=== PATIENT | female | born 1950 | race Caucasian/White ===

== ENCOUNTER 2017-04-24 10:00 | Outpatient (RCR) | payer MEDICARE, OTHER, SELFPAY ==
--- NOTE | 2017-03-23 13:16 | HP.OTEVAL_ITS ---
Patient's Visit Information OMAR MONTALVO is a 66 year old F, referred to Occupational Therapy by Gopal Gutiérrez DO,, with a diagnosis of Left hand pain. Date of Evaluation: 03/23/17 Occupational Therapist: RAN Mclaughlin/Chantelle, CHT - Subjective Subjective: Pt had a fall on October 07 and suffered a left hand fx. -pt states she is having difficulty closing her hand around objects, and pushing off of her chair- pt states she noticed she could not close her hand and pain increases when she works with her knitting- pt is hopeful she can gain the ability to close her hand and return to knitting- - Pain left hand 3 Pain Intensity Range: 0, 5 - ROM Wrist: right 60/70 left 60/40 MP: Right LF 0/80 left 0/15 PIP: Right LF 0/105 left -5/65 DIP: Right LF 0/65 left -5/50 ROM Comments: pt - Strength [employer]: right 35# left 10# Lateral Pinch: right 8# left 6# Tripod Pinch: Right 6# left 4# - Edema PIP: right 5.0 left 5.3 - Hand/Wrist Evaluation Total Score of Pain & Functional Sections: 48 - Goals Goal:: pt will demo a increase in left anesthesia attending strength by 15# to increase pts ind with meal prep and other daily occupations by d/c Goal:: pt will demo a incrase in functional ROM of left MCP and PIP flex to increase pts composite fist to increase ind small object manipulation by d.c. Goal:: pt will report no pain greater than 2/10 with use of left hand for daily occupations and pushing up with left hand from chair or other tasks by d.c - Rehabilitation General Assessment: pt demo with limited left LF MCP and PIP functional ROM and limited left anesthesia attending strength decreasing pts ind. with BADLS and IADLS. pts LF is rotating radially and going under her left RF- Rehabilitation Potential: Good - Anticipated Interventions Anticipated Interventions: Strengthening, Edema Control, Triggerpoint Release, Modalities, Orthoses - Visit Plan Frequency: 1-2x /Week Duration: 6 Weeks General Plan: initiate OT services with PROM and PLLS to improve pts functioanal ROM and progress to strengthening for pt to return to her PLOF. TEXT: Thank you for the opportunity to evaluate your patient. For Medicare and Medicare HMO plans, please review the plan of care and approve it. It will need to be FAXED BACK to us at [phone] for Medicare purposes. Please let me know if there are questions or concerns regarding this plan of care. Physician Signature: Date:
--- NOTE | 2017-07-29 09:08 | HP.OT.NRP ---
HP - Discharge Summary - Patient Information OMAR MONTALVO was seen in my office for initial evaluation on 03/23/17. The following Plan of Care was established for this patient: Initial Frequency: 1-2x /Week Initial Duration: 6 Weeks Plan: cont POC - Anticipated Interventions Anticipated Interventions: Strengthening, Edema Control, Triggerpoint Release, Modalities, Orthoses This patient was last seen in our office 04/24/17. Pertinent comments regarding their Occupational therapy will appear below: pt was seen for 10 visits and progressed well with therapy. pt has not returned for further OT sessions and is now D/C at this time. At this point I will be discontinuing this patient from occupational therapy. I would be happy to see this patient again in the future if found appropriate by the physician. Thank you! Yahaira Garcia, OTR/L, CHT
== END 2017-04-24 19:00 | disposition home or self-care (01) ==
LOC: OT 10:00
PROVIDERS: Family Provider Family Medicine; PCP Family Medicine; Visit Provider Orthopaedic Surgery
DX: M79.642 Pain in left hand (principal)
CPT/HCPCS: 97018 ×2; 97110 ×2; 97140 ×2; 97166; 97530; G8987; G8988

== ENCOUNTER → 2022-11-05 | Outpatient (CLI) | payer MEDICARE, OTHER, SELFPAY ==
[2022-11-05 13:14] LABS: ALB/GLOB Ratio 1.1 RATIO (0.9-2.4); AST(SGOT) 21 U/L (15-37); Alanine Aminotransfer ALT/SGPT 25 U/L (13-56); Albumin, Serum 3.9 g/dL (3.2-5.0); Alkaline Phosphatase 68 U/L (45-117); Anion Gap 7 (5-15); BUN 14 mg/dL (7-18); BUN/Creat Ratio 14.7 RATIO (10-20); CRP < 2.90 mg/L (0.0-3.0); Calcium,Total 9.4 mg/dL (8.5-10.1); Chloride 108 mmol/L (98-107); Creatinine, Serum 0.96 mg/dL (0.55-1.02); EST Glomerular Filtration Rate 61 mL/min (>60); Est Glom Filt Rate - Afr Amer 74 mL/min (>60); Globulin 3.5 g/dL (2.2-4.2); Glucose 156 mg/dL (74-106); Protein, Total 7.4 g/dL (6.4-8.2); Sodium Level 140 mmol/L (136-145)
== END | disposition home or self-care (01) ==
LOC: MTLAB 10:12
PROVIDERS: PCP Nurse Practitioner Family; Referring Provider Internal Medicine Gastroenterology; Visit Provider Internal Medicine Gastroenterology
DX: R11.2 Nausea with vomiting, unspecified (principal)
CPT/HCPCS: 36415; 80053; 86140

== ENCOUNTER → 2023-06-15 | Outpatient (CLI) | payer MEDICARE, OTHER, SELFPAY ==
--- OUTSIDE RECORDS SUMMARY | 2023-06-15 20:25 | XMS RPT_ITS | CCD ---
Author Name Unknown Address [address] [place] [address] Organization [facility] Care Team Providers Care Print Line Operator Name Role Phone REFERRING, PHY WO ID Unavailable Unavailable STACY SAWANT Unavailable Unavailable DARREN BRIZUELA Unavailable Unavailable AG RYDER Admitting Unavailable AG RYDER Attending Unavailable STU RIDLEY Primary Care Unavailable ANGELA HOLLINGSWORTH Consulting Unavailable ANGELA TERAN, TIN CAN FEEDER Admitting UnavailANGELA No TIN CAN FEEDER Attending Unavaila STU [place] Primary Care Unavailable LORSON UNIVERSITY ADMINISTRATOR-DIRECTOR WEIGHTS AND MEASURES STU Primary Care Physician Vera PT, Li Unavailable Unavailable Test, P3 Scheduling - Pleating Machine Operator Advanced 4 Unavailab le Unavailable LORSON UNIVERSITY ADMINISTRATOR-MARI STU Primary Care Physician RENÉE UNIVERSITY ADMINISTRATOR-DIRECTOR WEIGHTS AND MEASURESMARCELINO Attending Unavailabl e LORSON UNIVERSITY ADMINISTRATOR-DIRECTOR WEIGHTS AND MEASURES [facility] Unavail able ÁLVARO CAUSEY, DR PARMAR Attending Unavailabl e LORSON UNIVERSITY ADMINISTRATOR-DIRECTOR WEIGHTS AND MEASURES [facility] Unavail able DR GHULAM REA MD Attending Unavailabl e LORSON UNIVERSITY ADMINISTRATOR-DIRECTOR WEIGHTS AND MEASURES, [facility] Unavail able LORSON UNIVERSITY ADMINISTRATOR-DIRECTOR WEIGHTS AND MEASURESSTU Attending Unavail able LORSON UNIVERSITY ADMINISTRATOR-DIRECTOR WEIGHTS AND MEASURES, [facility] Unavail able LORSON UNIVERSITY ADMINISTRATOR-DIRECTOR WEIGHTS AND MEASURES, STU Attending Unavail able LORSON UNIVERSITY ADMINISTRATOR-DIRECTOR WEIGHTS AND MEASURES, [facility] Unavail able LORSON UNIVERSITY ADMINISTRATOR-DIRECTOR WEIGHTS AND MEASURES, STU Attending Unavail able LORSON UNIVERSITY ADMINISTRATOR-DIRECTOR WEIGHTS AND MEASURES, [facility] Care Unavail able MAST UNIVERSITY ADMINISTRATOR-DIRECTOR WEIGHTS AND MEASURESMARCELINO Attending Unavailabl e LORSON UNIVERSITY ADMINISTRATOR-DIRECTOR WEIGHTS AND MEASURES, [facility] Unavail able LORSON UNIVERSITY ADMINISTRATOR-DIRECTOR WEIGHTS AND MEASURES, [facility] Unavail able LORSON UNIVERSITY ADMINISTRATOR-DIRECTOR WEIGHTS AND MEASURES, STU Attending Unavail able LORSON UNIVERSITY ADMINISTRATOR-DIRECTOR WEIGHTS AND MEASURES, [facility] Unavail able TONY CAUSEY, BOBBY Attending Unavailable TONY CAUSEY, BOBBY Admitting Unavailable LAISHA CAUSEY, JOSEPH Consulting Unavailable JERONIMO CAUSEY, ADAN Fenton Consulting Unavaila ble LORSON UNIVERSITY ADMINISTRATOR-DIRECTOR WEIGHTS AND MEASURES, [facility] Unavail able LORSON UNIVERSITY ADMINISTRATOR-DIRECTOR WEIGHTS AND MEASURES, TORNADO Attending Unavail able LORSON UNIVERSITY ADMINISTRATOR-DIRECTOR WEIGHTS AND MEASURES, TORNADO Primary Care Unavail able LORSON UNIVERSITY ADMINISTRATOR-DIRECTOR WEIGHTS AND MEASURES, TORNADO Attending Unavail able LORSON UNIVERSITY ADMINISTRATOR-DIRECTOR WEIGHTS AND MEASURES, [facility] Care Unavail able LORSON UNIVERSITY ADMINISTRATOR-DIRECTOR WEIGHTS AND MEASURES, TORNADO Attending Unavail able LORSON UNIVERSITY ADMINISTRATOR-DIRECTOR WEIGHTS AND MEASURES, [facility] Unavail able SNEHAL CAUSEY, KHADIJAH Consulting Unavailable JOYCE CAUSEY, TAYLOR Attending Unavailable CARLOS ENRIQUE CAUSEY, DR MARQUES Lockhart Referring Unavai lable LORSON UNIVERSITY ADMINISTRATOR-DIRECTOR WEIGHTS AND MEASURES, [facility] Unavail able LENKA CAUSEY, CAROL ANN Consulting Unavailable CARLOS ENRIQUE CAUSEY, DR MARQUES Lockhart Attending Unavai lable LORSON UNIVERSITY ADMINISTRATOR-DIRECTOR WEIGHTS AND MEASURES, [facility] Unavail able LORSON UNIVERSITY ADMINISTRATOR-DIRECTOR WEIGHTS AND MEASURES, TORNADO Attending Unavail able MARILYN CAUSEY, STEPH Attending Unavailable LORSON UNIVERSITY ADMINISTRATOR-DIRECTOR WEIGHTS AND MEASURES, [facility] Unavail able CARLOS ENRIQUE CAUSEY, DR MARQUES Lockhart Attending Unavai lable LORSON UNIVERSITY ADMINISTRATOR-DIRECTOR WEIGHTS AND MEASURES, [facility] Unavail able CARLOS ENRIQUE CAUSEY, DR MARQUES Lockhart Attending Unavai lable LORSON UNIVERSITY ADMINISTRATOR-DIRECTOR WEIGHTS AND MEASURES, [facility] Unavail able Allergies Allergy Classification Reported Allergen(s) Allergy Type Date of Onset Reaction(s) Facility (18 sources) Beclomethasone; Translations: [beclomethasone] Drug Allergy cough [facility] (18 sources) metFORMIN; Translations: [metformin] Drug Allergy diarrhea, nausea [facility] (1 source) Metoclopramide; Translations: [metoclopramide] Drug Allergy fatigue, weakness [facility] [place] [facility] Medications Current Medications Medication Drug Class(es) Dates Sig (Normalized) Sig (Original) Azithromycin 5 Day Dose Pack 250 mg oral tablet (1 source) Start: 04-10-2022 End: 12-06-2022 Azithromycin 5 Day Dose Pack 250 mg oral tablet Take two (2) tablets day 1-then one (1) tablet, Oral, Daily, X 5 day(s), # 6 tab(s), 0 Refill(s), 04/15/22 16:19:00 EST, Pharmacy: [facility], 164.5, cm, 03/26/22 13:14:00 EST, Height, 81.5 Start Date: 04/10/22 Stop Date: 04/15/22 Status: Ordered baclofen 10 mg oral tablet (11 sources) gamma-Aminobutyr ic Acid-ergic Agonist Start: 05-09-2021 baclofen 10 mg oral tablet Dose : 10 mg = 1 tab(s), Oral, BID, 0 Refill(s) Start Date: 05/09/21 Status: Ordered Caltrate (15 sources) Start: 01-07-2019 take 2 tablets by mouth once daily Caltrate 2 tabs mg, Oral, qDay, 0 Refill(s) Start Date: 01/07/19 Status: Ordered calcium carbonate 1500 mg / cholecalciferol 800 unt oral tablet (3 sources) Vitamin D Start: 02-20-2023 take 1 tablet by mouth twice daily Caltrate 600 + D oral tablet Dose = 1 tab(s), Oral, BID Start Date: 02/20/23 Status: Ordered Centrum Silver oral tablet (18 sources) Start: 01-07-2019 take 1 tablet by mouth once daily Centrum Silver oral tablet Dose = 1 tab(s), Oral, qDay, 0 Refill(s) Start Date: 01/07/19 Status: Ordered Completed/Discontinued Medications Medication Drug Class(es) Dates Sig (Normalized) Sig (Original) aspirin 81 mg chewable tablet (12 sources) Platelet Aggregation Inhibitor, Nonsteroidal Anti-inflammatory Drug Start: 05-23-2022 End: 09-20-2022 aspirin 81 mg oral tablet, chewable Dose : 81 mg = 1 tab(s), Chewed, qDay, # 30 tab(s), 3 Refill(s), Pharmacy: [facility], 164.5, cm, 05/23/22 9:39:00 EST, Height Start Date: 05/23/22 Stop Date: 09/20/22 Status: Ordered lisinopril 2.5 mg oral tablet (12 sources) Angiotensin Converting Enzyme Inhibitor Start: 09-02-2021 End: 08-28-2022 lisinopril 2.5 mg oral tablet Dose : 2.5 mg = 1 tab(s), Oral, qDay, # 90 tab(s), 3 Refill(s), Pharmacy: [facility], 162.6, cm, 05/09/21 14:25:00 EST, Height, kg, 05/09/21 14:25:00 EST, Dosing Weight Start Date: 09/02/21 Stop Date: 08/28/22 Status: Ordered Problems Active Problems Problem Classification Problem Date Documented Da te Episodic/Chronic Coma; stupor; and brain damage (3 sources) Daytime somnolence 02-16-2023 Episodic Complications of surgical procedures or medical care (2 sources) Prolapse of vaginal vault after hysterectomy; Translations: [PROLAPSE VAGINAL VAULT AFTER HYST] Onset: 03-30-2019 Chronic Conditions associated with dizziness or vertigo (18 sources) Vertigo 01-28-2018 Episodic Coronary atherosclerosis and other heart disease (1 source) Coronary atherosclerosis; Translations: [Atherosclerotic heart disease of [place] coronary artery without angina pectoris] Onset: 02-21-2023 Chronic Diabetes mellitus without complication (20 sources) Type 2 diabetes mellitus; Translations: [Type 2 diabetes mellitus without complication] Onset: 09-17-2022 10-11-2019 Chronic Diabetes mellitus without complication (1 source) Prediabetes; Translations: [PREDIABETES] Onset: 03-30-2019 Disorders of lipid metabolism (18 sources) Hyperlipidemia 10-11-2019 Chronic Esophageal disorders (19 sources) Gastro-esophageal reflux disease without esophagitis; Translations: [Gastroesophageal reflux disease] Onset: 03-30-2019 01-28-2018 Chronic Essential hypertension (2 sources) Hypertensive disorder 02-25-2023 Chronic Malaise and fatigue (20 sources) Fatigue; Translations: [Asthenia] Onset: 09-17-2022 03-26-2022 Episodic Mycoses (12 sources) Candidiasis of mouth 04-30-2022 Episodic Nausea and vomiting (1 source) Nausea; Translations: [NAUSEA] Onset: 03-30-2019 Episodic Nonspecific chest pain (16 sources) Chest pain 09-25-2021 Episodic Osteoarthritis (1 source) Unspecified osteoarthritis, unspecified site; Translations: [UNSPECIFIED OSTEOARTHRITIS UNS SITE] Onset: 03-30-2019 Chronic Other aftercare (1 source) Other buttermaker continuous churn (current) drug therapy; Translations: [[facility] OFFICER CURRENT DRUG THERAPY] Onset: 03-30-2019 Episodic Other aftercare (2 sources) Post-discharge follow-up 02-25-2023 Episodic Other bone disease and musculoskeletal deformities (5 sources) Osteopenia 01-26-2023 Episodic Other connective tissue disease (18 sources) Pain in lower limb 07-25-2020 Episodic Other connective tissue disease (2 sources) Recurrent falls 02-25-2023 Episodic Other disorders of stomach and duodenum (1 source) Gastroparesis syndrome; Translations: [Gastroparesis] Onset: 02-21-2023 Episodic Other lower respiratory disease (18 sources) Dyspnea 02-01-2020 Episodic Other lower respiratory disease (13 sources) Snoring 03-26-2022 Episodic Other lower respiratory disease (12 sources) Dyspnea on exertion 04-30-2022 Episodic Other non-traumatic joint disorders (13 sources) Hip pain 03-26-2022 Episodic Other non-traumatic joint disorders (8 sources) Joint pain 09-24-2022 Episodic Other non-traumatic joint disorders (1 source) Pain in right hip joint; Translations: [Pain in right hip] Onset: 02-21-2023 Episodic Other nutritional; endocrine; and metabolic disorders (18 sources) Body mass index 25-29 - overweight 07-25-2020 Episodic Other nutritional; endocrine; and metabolic disorders (1 source) Abnormal weight loss; Translations: [Abnormal weight loss] Onset: 02-21-2023 Episodic Other nutritional; endocrine; and metabolic disorders (2 sources) Unintentional weight loss 02-25-2023 Episodic Other nutritional; endocrine; and metabolic disorders (2 sources) Abnormal weight loss; Translations: [Abnormal weight loss] Onset: 06-02-2023 Episodic Other nutritional; endocrine; and metabolic disorders (1 source) Weight loss 06-02-2023 Episodic Other upper respiratory infections (5 sources) Viral upper respiratory tract infection 04-09-2022 Episodic Otitis media and related conditions (18 sources) Dysfunction of eustachian tube 01-07-2019 Episodic Residual codes; unclassified (12 sources) Obstructive sleep apnea syndrome; Translations: [Obstructive sleep apnea (adult) (pediatric)] Onset: 02-21-2023 09-24-2022 Chronic Residual codes; unclassified (18 sources) Postmenopausal state 01-30-2021 Episodic Residual codes; unclassified (3 sources) Amnesia 02-16-2023 Episodic Residual codes; unclassified (2 sources) Other amnesia; Translations: [Other amnesia] Onset: 06-02-2023 Episodic Residual codes; unclassified (2 sources) Altered mental status, unspecified; Translations: [Altered mental status, unspecified] Onset: 06-02-2023 Episodic Residual codes; unclassified (1 source) Altered mental status 06-02-2023 Episodic Thyroid disorders (20 sources) Hypothyroidism, unspecified; Translations: [Hypothyroidism] Onset: 03-30-2019 02-01-2019 Chronic Unclassified (1 source) Unknown / UNK(Unknown) Onset: 2016 Unclassified (20 sources) Patient encounter status 01-30-2021 Urinary tract infections (3 sources) Urinary tract infectious disease; Translations: [Urinary tract infection, site not specified] Onset: 02-20-2023 Episodic Viral infection (2 sources) Disease caused by 2019-nCoV 02-25-2023 Past or Other Problems Problem Classification Problem Date Documented Da te Episodic/Chronic Other non-traumatic joint disorders (2 sources) Pain in unspecified joint; Translations: [Pain in unspecified joint] Onset: 09-24-2022 Episodic Unclassified (1 source) (R)SHLD CONTUSION Onset: 2016 Results Test Name Value Interpretation Reference Range Facil ity Vital Signs Date Time Vital Sign Value Performing Clinician Faci lity 02-22-2023 15:25-0400 Blood Pressure Cuff Size BOBBY JIMENEZ MD [facility] 02-22-2023 15:25-0400 Blood Pressure Location BOBBY JIMENEZ MD [facility] 02-22-2023 15:25-0400 Blood Pressure Method BOBBY JIMENEZ MD [facility] 02-22-2023 15:25-0400 Body temperature 98.06 [degF] BOBBY JIMENEZ MD [facility] 02-22-2023 15:25-0400 Diastolic Blood Pressure Non-Invasive 66 1 BOBBY JIMENEZ MD [address] [place] [address] 02-22-2023 15:25-0400 Heart rate 69 /min BOBYB JIMENEZ MD [address] [place] [address] 02-22-2023 15:25-0400 Respiratory rate 18 /min BOBBY JIMENEZ MD [address] [place] [address] 02-22-2023 15:25-0400 Systolic Blood Pressure Non-Invasive 130 1 BOBBY JIMENEZ MD [address] [place] [address] 02-22-2023 09:42-0400 Heart rate 80 /min BOBBY JIMENEZ MD [address] [place] [address] 02-22-2023 07:48-0400 Blood Pressure Cuff Size BOBBY JIMENEZ MD [address] [place] [address] 02-22-2023 07:48-0400 Blood Pressure Location BOBBY JIMENEZ MD [address] [place] [address] 02-22-2023 07:48-0400 Blood Pressure Method BOBBY JIMENEZ MD [address] [place] [address] 02-22-2023 07:48-0400 Body temperature 98.24 [degF] BOBBY JIMENEZ MD [address] [place] [address] 02-22-2023 07:48-0400 Diastolic Blood Pressure Non-Invasive 72 1 BOBBY JIMENEZ MD [address] [place] [address] 02-22-2023 07:48-0400 Heart rate 66 /min BOBBY JIMENEZ MD [address] [place] [address] 02-22-2023 07:48-0400 Respiratory rate 18 /min BOBBY JIMENEZ MD [address] [place] [address] 02-22-2023 07:48-0400 Systolic Blood Pressure Non-Invasive 150 1 BOBBY JIMENEZ MD [address] [place] [address] 02-21-2023 21:30-0400 Blood Pressure Cuff Size BOBBY JIMENEZ MD [address] [place] [address] 02-21-2023 21:30-0400 Blood Pressure Location BOBBY JIMENEZ MD [address] [place] [address] 02-21-2023 21:30-0400 Blood Pressure Method BOBBY JIMENEZ MD [address] [place] [address] 02-21-2023 21:30-0400 Body temperature 97.88 [degF] BOBBY JIMENEZ MD [address] [place] [address] 02-21-2023 21:30-0400 Diastolic Blood Pressure Non-Invasive 70 1 BOBBY JIMENEZ MD [address] [place] [address] 02-21-2023 21:30-0400 Heart rate 72 /min BOBBY JIMENEZ MD [address] [place] [address] 02-21-2023 21:30-0400 Respiratory rate 18 /min BOBBY JIMENEZ MD [address] [place] [address] 02-21-2023 21:30-0400 Systolic Blood Pressure Non-Invasive 116 1 BOBBY JIMENEZ MD [address] [place] [address] 02-21-2023 09:50-0400 Heart rate 100 /min BOBBY JIMENEZ MD [address] [place] [address] 02-20-2023 23:08-0400 Body height 162 cm BOBBY JIMENEZ MD [address] [place] [address] 02-20-2023 23:08-0400 Body weight 68 kg BOBBY JIMENEZ MD [address] [place] [address] 02-20-2023 23:08-0400 Body weight 25.91 kg/m2 BOBBY JIMENEZ MD [address] [place] [address] 02-20-2023 22:47-0400 Heart rate 79 /min BOBBY JIMENEZ MD [address] [place] [address] 02-20-2023 20:22-0400 Heart rate 85 /min BOBBY JIMENEZ MD [facility] 02-20-2023 17:46-0400 Heart rate 87 /min BOBBY JIMENEZ MD [facility] 02-20-2023 11:19-0400 Body weight 68 kg BOBBY JIMENEZ MD [facility] 02-05-2023 14:50-0400 Diastolic Blood Pressure Non-Invasive 70 1 TAYLOR COOK MD [facility] 02-05-2023 14:50-0400 Heart rate 66 /min TAYLOR COOK MD [address] 02-05-2023 14:50-0400 Respiratory rate 16 /min TAYLOR COOK MD [facility] 02-05-2023 14:50-0400 Systolic Blood Pressure Non-Invasive 129 1 TAYLOR COOK MD [facility] 02-05-2023 13:50-0400 Diastolic Blood Pressure Non-Invasive 74 1 TAYLOR COOK MD [facility] 02-05-2023 13:50-0400 Heart rate 65 /min TAYLOR COOK MD [facility] 02-05-2023 13:50-0400 Respiratory rate 16 /min TAYLOR COOK MD [facility] 02-05-2023 13:50-0400 Systolic Blood Pressure Non-Invasive 118 1 TAYLOR COOK MD [address] 02-05-2023 13:21-0400 Diastolic Blood Pressure Non-Invasive 80 1 TAYLOR COOK MD [facility] 02-05-2023 13:21-0400 Heart rate 63 /min TAYLOR COOK MD [facility] 02-05-2023 13:21-0400 Respiratory rate 16 /min TAYLOR COOK MD [facility] 02-05-2023 13:21-0400 Systolic Blood Pressure Non-Invasive 124 1 TAYLOR COOK MD [facility] 02-05-2023 07:37-0400 Body height 162.6 cm TAYLOR COOK MD [facility] 02-05-2023 07:37-0400 Body temperature 97.16 [degF] TAYLOR COOK MD [facility] 02-05-2023 07:37-0400 Body weight 26.17 kg/m2 TAYLOR COOK MD [facility] 02-05-2023 07:37-0400 Body weight 69.2 kg TAYLOR COOK MD [facility] Encounters Encounter Date Encounter Type Care Provider Facility Start: 06-02-2023 ambulatory MARCELINO MAST UNIVERSITY ADMINISTRATOR-DIRECTOR WEIGHTS AND MEASURES Fa cility:B Start: 06-02-2023 End: 06-03-2023 ambulatory MARCELINO MAST UNIVERSITY ADMINISTRATOR-DIRECTOR WEIGHTS AND MEASURES Facility:B Start: 06-02-2023 End: 06-06-2023 Outreach Lab MARCELINO MAST UNIVERSITY ADMINISTRATOR-DIRECTOR WEIGHTS AND MEASURES [facility] Start: 05-19-2023 End: 05-20-2023 ambulatory STEPH SANDERS MD Facility:B Start: 05-07-2023 ambulatory STU RIDLEY UNIVERSITY ADMINISTRATOR-DIRECTOR WEIGHTS AND MEASURES Facility:B Start: 03-18-2023 End: 03-19-2023 ambulatory STU RIDLEY UNIVERSITY ADMINISTRATOR-DIRECTOR WEIGHTS AND MEASURES Facility:B Start: 03-18-2023 End: 03-18-2023 Patient encounter procedure SUT RIDLEY UNIVERSITY ADMINISTRATOR-DIRECTOR WEIGHTS AND MEASURES [facility] Start: 02-25-2023 End: 04-07-2023 ambulatory STU RIDLEY UNIVERSITY ADMINISTRATOR-DIRECTOR WEIGHTS AND MEASURES Facility:R Start: 02-20-2023 End: 02-22-2023 ambulatory STU RIDLEY UNIVERSITY ADMINISTRATOR-DIRECTOR WEIGHTS AND MEASURES Facility:A Start: 02-20-2023 End: 02-22-2023 Observation BOBBY JIMENEZ MD [facility] Start: 02-05-2023 End: 02-05-2023 ambulatory STU RIDLEY UNIVERSITY ADMINISTRATOR-DIRECTOR WEIGHTS AND MEASURES Facility:A Start: 02-05-2023 End: 02-05-2023 SAME DAY STAY TAYLOR COOK MD [facility] Start: 02-04-2023 End: 02-05-2023 ambulatory STU RIDLEY UNIVERSITY ADMINISTRATOR-DIRECTOR WEIGHTS AND MEASURES Facility:B Start: 02-04-2023 End: 02-04-2023 Patient encounter procedure STU RIDLEY UNIVERSITY ADMINISTRATOR-DIRECTOR WEIGHTS AND MEASURES [facility] Start: 02-03-2023 End: 02-04-2023 ambulatory STU RIDLEY UNIVERSITY ADMINISTRATOR-DIRECTOR WEIGHTS AND MEASURES Facility:B Start: 01-21-2023 End: 01-26-2023 ambulatory STU RIDLEY UNIVERSITY ADMINISTRATOR-DIRECTOR WEIGHTS AND MEASURES Facility:B Start: 01-21-2023 End: 01-25-2023 Outreach Lab STU RIDLEY UNIVERSITY ADMINISTRATOR-DIRECTOR WEIGHTS AND MEASURES [facility] Start: 11-27-2022 End: 11-28-[address] GHULAM REA MD Facility:B Start: 11-27-2022 End: 11-27-[address] GHULAM REA MD [facility] Start: 11-07-2022 End: 11-08-[address] GHULAM REA MD Facility:B Start: 11-07-2022 End: 11-07-[address] GHULAM REA MD [facility] Start: 09-24-2022 End: 09-29-2022 ambulatory STU RIDLEY UNIVERSITY ADMINISTRATOR-DIRECTOR WEIGHTS AND MEASURES Facility:B Start: 09-17-2022 End: 09-22-2022 ambulatory STU RIDLEY UNIVERSITY ADMINISTRATOR-DIRECTOR WEIGHTS AND MEASURES Facility:B Start: 09-17-2022 End: 09-21-2022 Outreach Lab STU RIDLEY UNIVERSITY ADMINISTRATOR-DIRECTOR WEIGHTS AND MEASURES [facility] Start: 07-09-2022 End: 07-10-[address] MARQUES MONACO MD Facility:B Start: 07-09-2022 End: 07-09-[address] MARQUES MONACO MD [facility] Start: 06-06-2022 End: 06-06-2022 ambulatory STU RIDLEY UNIVERSITY ADMINISTRATOR-DIRECTOR WEIGHTS AND MEASURES Facility:A Start: 06-05-2022 End: 06-06-[address] MARQUES MONACO MD Facility:B Start: 06-05-2022 End: 06-05-[address] MARQUES MONACO MD [facility] Start: 05-23-2022 End: 05-23-2022 Patient encounter procedure STU RIDLEY UNIVERSITY ADMINISTRATOR-DIRECTOR WEIGHTS AND MEASURES [facility] Start: 04-09-2022 End: 04-13-2022 Outreach Lab STU RIDLEY UNIVERSITY ADMINISTRATOR-DIRECTOR WEIGHTS AND MEASURES [facility] Start: 03-20-2022 End: 03-24-2022 Outreach Lab STU RIDLEY UNIVERSITY ADMINISTRATOR-DIRECTOR WEIGHTS AND MEASURES [facility] Start: 10-11-2021 End: 10-11-2021 Patient encounter procedure STU SANCHEZMARY UNIVERSITY ADMINISTRATOR-DIRECTOR WEIGHTS AND MEASURES [facility] Start: 09-26-2021 End: 09-26-2021 Patient encounter procedure STU RIDLEY UNIVERSITY ADMINISTRATOR-DIRECTOR WEIGHTS AND MEASURES [facility] Start: 04-24-2021 End: 04-24-2021 Patient encounter procedure STU RIDLEY UNIVERSITY ADMINISTRATOR-DIRECTOR WEIGHTS AND MEASURES [facility] Start: 03-15-2021 End: 03-15-2021 Patient encounter procedure STU RIDLEY UNIVERSITY ADMINISTRATOR-DIRECTOR WEIGHTS AND MEASURES [facility] Start: 03-21-2019 End: 03-22-2019 Patient encounter procedure [facility] Start: 03-15-2019 Encounter for other preprocedural examination [facility] Start: 03-14-2019 End: 03-15-2019 Patient encounter procedure ANGELA Mitchell NP [facility] Start: 2016 Ambulatory PHY WO ID REFERRING Fac ility:[facility] Procedures Date Procedure Procedure Detail Performing Clinician Start: 02-05-2023 Cardiac catheterization MARCELINO CHINCHILLA UNIVERSITY ADMINISTRATOR-DIRECTOR WEIGHTS AND MEASURES Immunizations Immunization Date Immunization Notes Care Provider Stef stringer 07-19-2020 SARS-CoV-2 (COVID-19 ) Ad26 vaccine, recombinant STU RIDLEY UNIVERSITY ADMINISTRATOR-DIRECTOR WEIGHTS AND MEASURES [facility] 10-08-2016 tetanus toxoid, redu destin diphtheria toxoid, and acellular pertussis vaccine, adsorbed STU KHAI UNIVERSITY ADMINISTRATOR-DIRECTOR WEIGHTS AND MEASURES [facility] 05-31-2015 zoster vaccine, live STU SANCHEZMARY UNIVERSITY ADMINISTRATOR-DIRECTOR WEIGHTS AND MEASURES [facility] 04-12-2012 tetanus toxoid, redu destin diphtheria toxoid, and acellular pertussis vaccine, adsorbed STU RIDLEY UNIVERSITY ADMINISTRATOR-DIRECTOR WEIGHTS AND MEASURES [facility] Payers Date Payer Category Payer Medicare [id number] 1958 Unknown [id number] 1950 Unknown [id number] 2.16.8 40.1.142242.3.579.2. 1950 Unknown [id number] 2.16.8 40.1.988197.3.579.2. 1950 Unknown [id number] 2.16.8 40.1.125349.3.579.2. 1950 Unknown [id number] 2.16.8 40.1.329742.3.579.2. 1951 Unknown [id number] 2.16.8 40.1.465857.3.579.2. 1951 Unknown [id number] 2.16.8 40.1.172340.3.579.2. 1951 Unknown [id number] 2.16.8 40.1.303991.3.579.2. 1951 Unknown [id number] 2.16.8 40.1.102377.3.579.2. 1950 Unknown [id number] 2.16.8 40.1.230961.3.579.2. 1951 Unknown [id number] 2.16.8 40.1.008167.3.579.2. 1951 Unknown [id number] 2.16.8 40.1.384819.3.579.2. 1950 Unknown [id number] 2.16.8 40.1.300692.3.579.2. 1951 Unknown [id number] 2.16.8 40.1.979848.3.579.2.627 1951 Unknown [id number] 2.16.8 40.1.158413.3.579.2.627 1951 Unknown [id number] 2.16.8 40.1.902702.3.579.2.627 1951 Unknown [id number] 2.16.8 40.1.766862.3.579.2.627 1951 Unknown [id number] 2.16.8 40.1.199666.3.579.2.627 1951 Unknown [id number] 2.16.84 0.1.167479.3.579.2.598 1950 Unknown [id number] Social History Date Type Detail Facility Start: 07-05-2019 Never smoked t obacco (finding) [facility] Sex Assigned At Female [facility] Functional Status Date Assessment Result Facility 02-22-2023 Functional Status Professional S killed Services Occupational Therapy, Physical Therapy [facility] 02-22-2023 Functional Status Nurse Johnnie preston q2hrs Performed 11am-3pm [facility] 02-22-2023 Functional Status Room check performed [facility] 02-22-2023 Functional Status [facility] 02-22-2023 Functional Status [facility] 02-22-2023 Functional Status [facility] 02-22-2023 Functional Status [facility] 02-21-2023 Functional Status [facility] 02-21-2023 Functional Status [facility] 02-21-2023 Functional Status Min A [facility] 02-21-2023 Functional Status [facility] 02-20-2023 Functional Status None [facility] 02-20-2023 Functional Status [facility] 02-20-2023 Functional Status [facility] 02-05-2023 Functional Status Room check performed [facility] 02-05-2023 Functional Status [facility] 02-05-2023 [facility] Date Assessment Result Facility 02-22-2023 Mental Status Orientation Oriented x 4, F orgetful [facility] 02-21-2023 Mental Status [facility] 02-21-2023 Mental Status [facility] 02-05-2023 Mental Status Oriented x 4 [facility] 02-05-2023 Mental Status [facility] 02-05-2023 Mental [facility] Clinical Notes 04-09-2022 to 02-25-2023 Note Date & Type Note Facility 02-25-2023 Note . MICRO - Microbiology PROCEDURE: Blood Culture (bacterial) [*1] SOURCE: Blood BODY SITE: COLLECTED DATE/TIME: 02/20/2023 15:59 EDT RECEIVED DATE/TIME: 02/20/2023 16:09 EDT START DATE/TIME: 02/20/2023 16:09 EDT FREE TEXT SOURCE: FINAL REPORTS Final Report [] Verified Date/Time/Personnel: 02/25/2023 16:59 EDT Blood Culture: No Growth at 5 days. PRELIMINARY REPORTS Preliminary Report [] Verified Date/Time/Personnel: 02/20/2023 16:59 EDT Culture has been received in lab and is no growth to date. Routine cultures are held for 5 days. Performing Locations *1: This test was performed at: [facility], [address] [place] [address], [address] [place] [address] ([place]) 02-25-2023 Note . MICRO - Microbiology PROCEDURE: Blood Culture (bacterial) [*1] SOURCE: Blood BODY SITE: COLLECTED DATE/TIME: 02/20/2023 15:59 EDT RECEIVED DATE/TIME: 02/20/2023 16:09 EDT START DATE/TIME: 02/20/2023 16:09 EDT FREE TEXT SOURCE: FINAL REPORTS Final Report [] Verified Date/Time/Personnel: 02/25/2023 16:59 EDT Blood Culture: No Growth at 5 days. PRELIMINARY REPORTS Preliminary Report [] Verified Date/Time/Personnel: 02/20/2023 16:59 EDT Culture has been received in lab and is no growth to date. Routine cultures are held for 5 days. Performing Locations *1: This test was performed at: [facility], [address] [place] [address], [id number] , [facility] ([place]) 02-22-2023 Hospital Discharge instructions Patient Education 02/22/2023 15:24:24 Heart-Healthy Eating Plan, [id number] Heart-Healthy Eating Plan Heart-healthy meal planning includes: Eating less unhealthy fats. Eating more healthy fats. Making other changes in your diet. Talk with your doctor or a diet specialist (dietitian) to create an eating plan that is right for you. What is my plan? Your doctor may recommend an eating plan that includes: Total fat: % or less of total calories a day. Saturated fat: % or less of total calories a day. Cholesterol: less than mg a day. What are tips for following this plan? Cooking Avoid frying your food. Try to bake, boil, grill, or broil it instead. You can also reduce fat by: Removing the skin from poultry. Removing all visible fats from meats. Steaming vegetables in water or broth. Meal planning At meals, divide your plate into four equal parts: ?Fill one-half of your plate with vegetables and green salads. ?Fill one-fourth of your plate with whole grains. ?Fill one-fourth of your plate with lean protein foods. Eat 4 5 servings of vegetables per day. A serving of vegetables is: ?1 cup of raw or cooked vegetables. ?2 cups of raw leafy greens. Eat 4 5 servings of fruit per day. A serving of fruit is: ?1 medium whole fruit. ? cup of dried fruit. ? cup of fresh, frozen, or canned fruit. ? cup of 100% fruit juice. Eat more foods that have soluble fiber. These are apples, broccoli, carrots, beans, peas, and barley. Try to get 20 30 g of fiber per day. Eat 4 5 servings of nuts, legumes, and seeds per week: ?1 serving of dried beans or legumes equals cup after being cooked. ?1 serving of nuts is cup. ?1 serving of seeds equals 1 tablespoon. General information Eat more home-cooked food. Eat less restaurant, buffet, and fast food. Limit or avoid alcohol. Limit foods that are high in starch and sugar. Avoid fried foods. Lose weight if you are overweight. Keep track of how much salt (sodium) you eat. This is important if you have high blood pressure. Ask your doctor to tell you more about this. Try to add vegetarian meals each week. Fats Choose healthy fats. These include olive oil and canola oil, flaxseeds, walnuts, almonds, and seeds. Eat more omega-3 fats. These include salmon, mackerel, sardines, tuna, flaxseed oil, and ground flaxseeds. Try to eat fish at least 2 times each week. Check food labels. Avoid foods with trans fats or high amounts of saturated fat. Limit saturated fats. ?These are often found in animal products, such as meats, butter, and cream. ?These are also found in plant foods, such as palm oil, palm kernel oil, and coconut oil. Avoid foods with partially hydrogenated oils in them. These have trans fats. Examples are stick margarine, some tub margarines, cookies, crackers, and other baked goods. What foods can I eat? Fruits All fresh, canned (in natural juice), or frozen fruits. Vegetables Fresh or frozen vegetables (raw, steamed, roasted, or grilled). Green salads. Grains Most grains. Choose whole wheat and whole grains most of the time. Rice and pasta, including brown rice and pastas made with whole wheat. Meats and other proteins Lean, well-trimmed beef, veal, pork, and randolph. Chicken and turkey without skin. All fish and shellfish. Wild duck, rabbit, pheasant, and venison. Egg whites or low-cholesterol egg substitutes. Dried beans, peas, lentils, and tofu. Seeds and most nuts. Dairy Low-fat or nonfat cheeses, including ricotta and mozzarella. Skim or 1% milk that is liquid, powdered, or evaporated. Buttermilk that is made with low-fat milk. Nonfat or low-fat yogurt. Fats and oils Non-hydrogenated (trans-free) margarines. Vegetable oils, including soybean, sesame, sunflower, olive, peanut, safflower, corn, canola, and cottonseed. Salad dressings or mayonnaise made with a vegetable oil. Beverages Mineral water. Coffee and tea. Diet carbonated beverages. Sweets and desserts Sherbet, gelatin, and fruit ice. Small amounts of dark chocolate. Limit all sweets and desserts. Seasonings and condiments All seasonings and condiments. The items listed above may not be a complete list of foods and drinks you can eat. Contact a dietitian for more options. What foods should I avoid? Fruits Canned fruit in heavy syrup. Fruit in cream or butter sauce. Fried fruit. Limit coconut. Vegetables Vegetables cooked in cheese, cream, or butter sauce. Fried vegetables. Grains Breads that are made with saturated or trans fats, oils, or whole milk. Croissants. Sweet rolls. Donuts. High-fat crackers, such as cheese crackers. Meats and other proteins Fatty meats, such as hot dogs, ribs, sausage, purcell, rib-eye roast or steak. High-fat deli meats, such as salami and bologna. Caviar. Domestic duck and goose. Organ meats, such as liver. Dairy Cream, sour cream, cream cheese, and creamed cottage cheese. Whole-milk cheeses. Whole or 2% milk that is liquid, evaporated, or condensed. Whole buttermilk. Cream sauce or high-fat cheese sauce. Yogurt that is made from whole milk. Fats and oils Meat fat, or shortening. [place] butter, hydrogenated oils, palm oil, coconut oil, palm kernel oil. Solid fats and shortenings, including purcell fat, salt pork, lard, and butter. Nondairy cream substitutes. Salad dressings with cheese or sour cream. Beverages Regular sodas and juice drinks with added sugar. Sweets and desserts Frosting. Pudding. Cookies. Cakes. Pies. Milk chocolate or white chocolate. Buttered syrups. Full-fat ice cream or ice cream drinks. The items listed above may not be a complete list of foods and drinks to avoid. Contact a dietitian for more information. Summary Heart-healthy meal planning includes eating less unhealthy fats, eating more healthy fats, and making other changes in your diet. Eat a balanced diet. This includes fruits and vegetables, low-fat or nonfat dairy, lean protein, nuts and legumes, whole grains, and heart-healthy oils and fats. This information is not intended to replace advice given to you by your health care provider. Make sure you discuss any questions you have with your health care provider. Document Released: 10/26/2012 Document Revised: 07/01/2018 Document Reviewed: 06/04/2018 [employer] Patient Education 2020 [employer]. Follow Up Care 02/20/2023 11:18:26 With:STU RIDLEY APRN[facility] Address: [address] [place] [address]- [phone] When:2-4 days With:JACOB HANDY Address: When:Within 2 Week(s) [facility] 02-22-2023 Discharge summary Date of Service 02/22/23 Discharge Diagnosis 1. Multiple falls 2. E.Coli UTI 3. Asthenia 4. Gastroparesis 5. Bilateral hip pain 6. Unintentional weight loss 7. CHELSIE (obstructive sleep apnea) 8. Hypothyroidism 9. CAD (coronary artery disease) Additional Orders: Ordered: CMP,02/22/23 5:00:00 EDT, Next AM Draw (one day only), Blood, Once, Preferred Lab: [facility], Stop date 02/22/23 5:00:00 EDT Ordered: Communication Order (scheduled),02/22/23 13:34:00 EDT, Once, 02/22/23 13:34:00 EDT, Please give ceftrixaone prior to discharge Ordered: Consult Home Health - OT,02/22/23 13:37:00 EDT, Home Therapy Order: OT Eval & Treat, Home Therapy Instruction: Full weight bearing, Reason: ADL assistance Ordered: Consult Home Health - PT,02/22/23 13:37:00 EDT, Home Therapy Order: PT Eval & Treat, Reason: General Debility, Home Therapy Instruction: Full weight bearing Ordered: Consult Home Health - RN,02/22/23 13:37:00 EDT, Reason: Disease management Ordered: Discharge,02/22/23 13:37:00 EDT, Discharged to: Home Ordered: Discharge Activity,Resume your pre-hospitalization activity, 02/22/23 13:37:00 EDT Ordered: Discharge Diet,No changes were made to your diet during your hospital stay. Please resume your pre hospitalization diet on discharge., 02/22/23 13:37:00 EDT Other status: KCL,Start: 02/22/23 8:30:00 EDT, Dose = 40 mEq, = 2 tab(s), Oral, Once, Stop: 02/22/23 8:30:00 EDT, with food/meal, 02/22/23 8:28:00 EDT(Complete) Ordered: Magnesium Level,02/22/23 5:01:00 EDT, Next AM Draw (one day only), Blood, Once, Preferred Lab: [facility], Stop date 02/22/23 5:01:00 EDT Ordered: losartan 50 mg oral tablet,Dose : 50 mg = 1 tab(s), Oral, qDay, 0 Refill(s) Hospital Course Patient is at 72 year old female with a past medical history significant for CAD, hypothyroidism, gastroparesis, GERD, and recently diagnosed sleep apnea with CPAP (not yet started) . Patient presented to [facility] emergency department with complaints of increased weakness, unintentional weight loss, falls. Patient's Radha at bedside who provides most of the information. Per patient has lost interest in activities, increased weakness and multiple falls. Patient denies any lightheadedness, dizziness or syncope associated with falls. Cardiac emergency department patient with evidence of urinary track infection and placed on ceftriaxone. CT head completed showing no acute abnormality. CXR unremarkable. CBC unremarkable. BMP with hyperglycemia otherwise unremarkable. TSH 0.075, free T41.171 And free T3 three 2.60. Troponin were negative. Patient was admitted to hospital further evaluation and neurology consult. Patient was evaluated by neurology. Patient underwent MRI of the brain and C-spine with and without contrast. No acute abnormalities. Patient was found to have E. coli urinary tract infection, pansensitive. Patient received 3 dose of IV ceftriaxone during hospitalization. Patient to follow up as outpatient for pending lab work (Pending labs acetylcholine receptor modulating/blocking antibody, P/Q type Ab, rapid plasma reagin test, B6, JEANNA, B1, heavy metal, copper,cryoglobulin, paraneoplastic panel). Neurology recommending outpatient EMG to further evaluate for neuromuscular disorders etc. Patient was evaluated by physical therapy and Occupational Therapy recommended patient discharged to a senior living facility. Unfortunately this would be private pay for patient. Patient is to return home with home PT and OT. Patient is in the process of obtaining CPAP machine at home. Recent outpatient sleep study per patient and . At this time patient is medically optimized for discharge home with close outpatient follow-up. Shared/split visit with my collaborating physician Dr. Chano Sams. This dictation was performed using voice recognition software and may include grammatical and/or spelling errors Allergies Qvar (cough) metFORMIN (diarrhea, nausea) Consults Consult to Case Management/Social Service (Consult to Case Management) - Ordered -- 02/21/23 16:19:39 EDT Consult to Dietitian (Consult to Pedigree Tracer Adult) - Ordered -- 02/20/23 23:11:20 EDT Consult to Physician - Ordered -- 02/20/23 16:37:00 EDT, ADAN DECKER MD, Routine, Fatigue, weakness, Tremors.Neuromuscular process? Physical Exam Vitals and Measurements T: 36.8 C (Oral) TMIN: 36.6 C (Oral) TMAX: 37.1 C (Oral) HR: 80(Apical) RR: 18 BP: 150/72 SpO2: 94% Weight Dosing Weight: 68 kg (02/20/23) Dosing Weight: 68 kg (02/20/23) Physical Exam General: No acute distress. Alert and Appropriate . Flat affect Skin: No rash. Warm, Dry, Intact HEENT: Head is normocephalic and atraumatic. No lesions. Pupils equal in size. Extraocular movements within normal limits. Nose: No septal deviation. Mouth: Oropharynx mucosa is without lesion. Neck: Supple. No lymphadenopathy, thyromegaly noted. Lungs: Bilaterally diminished breath sounds with no crepitation or wheeze. Unlabored Cardiovascular: Heart is regular rhythm, S1S2, No extra-audible heart tones Abdomen: Abdomen is soft, nontender. Bowel sounds positive all four quadrants. Extremities: No clubbing, cyanosis or edema. Peripheral pulses palpable. No calf tenderness. Adequate peripheral circulation. Neurological: The patient is awake, oriented to time, people and place. Following simple commands, moving all extremities. Genearlized weakness Code Status Code Status - Ordered -- 02/20/23 16:37:00 EDT, Full Code, Constant Order Admission Date 02/20/23 Discharge Date 02/22/23 Patient Instructions A full course of antibiotics was completed for your urinary tract infection prior to discharge. Please follow-up with your primary care physician Please follow-up with [facility] in the next 2 to 4 weeks Please continue to get CPAP set up at home and use as prescribed. Thank you for allowing me to participate in your care, Radha ALBERT [facility] [phone] Medications New Prescription losartan (losartan 50 mg oral tablet)1 tab(s) by mouth once a day. Refills: 0. Unchanged aspirin (aspirin 81 mg oral tablet, chewable)1 tab(s) Chewed once a day for 30 Days. Refills: 3. calcium-vitamin D (Caltrate 600 + D oral tablet)1 tab(s) by mouth two (2) times a day. furosemide (Lasix 20 mg oral tablet)1 tab(s) by mouth Thursday / Thursday / Thursday for 90 Days. Refills: 2. levothyroxine (Synthroid 100 mcg (0.1 mg) oral tablet)1 tab(s) by mouth once a day for 90 Days. Refills: 3. metoclopramide (metoclopramide 10 mg oral tablet)1 tab(s) by mouth once a day. metoprolol (Toprol-XL 25 mg oral tablet, extended release)1 tab(s) by mouth once a day for 90 Days. Do not crush or chew (controlled release). Refills: 2. multivitamin with minerals (Centrum Silver oral tablet)1 tab(s) by mouth once a day. pantoprazole (pantoprazole 40 mg oral enteric coated tablet)1 tab(s) by mouth once a day. Refills: 3. Discontinued rosuvastatin (rosuvastatin 10 mg oral tablet)1 tab(s) by mouth once a day. Refills: 3. Follow Up Follow Up with STU RIDLEY When Within 2-4 days Where: [address] [facility] [place] [address]- [phone] [facility] When In 2 weeks Where: Follow Up Appointments Consult Home Health - OT - Ordered -- 02/22/23 13:37:00 EDT, Home Therapy Order: OT Eval & Treat, Home Therapy Instruction: Full weight bearing, Reason: ADL assistance Consult Home Health - PT - Ordered -- 02/22/23 13:37:00 EDT, Home Therapy Order: PT Eval & Treat, Reason: General Debility, Home Therapy Instruction: Full weight bearing Consult Home Health - RN - Ordered -- 02/22/23 13:37:00 EDT, Reason: Disease management Discharge Diet Discharge Diet - Ordered -- No changes were made to your diet during your hospital stay. Please resume your pre hospitalization diet on discharge., 02/22/23 13:37:00 EDT Discharge Activity Discharge Activity - Ordered -- Resume your pre-hospitalization activity, 02/22/23 13:37:00 EDT Condition on Discharge Stable Discharge Disposition Home Home PT/OT Information Provided To Patient Radhames at bedside Time Spent 32 minutes Digitally Signed by RADHA ADRIAN on 02/22/2023 02:40 PM [facility] 02-22-2023 Note Discharge Instructions Thank you for allowing [facility] to assist you with your healthcare needs. The following is important discharge information regarding your hospital visit. Your Care Team STU RIDLEY Your Diagnosis Asthenia Bilateral hip pain CAD (coronary artery disease) E.Coli UTI Gastroparesis Hypothyroidism Multiple falls CHELSIE (obstructive sleep apnea) Unintentional weight loss Weakness or fatigue What to do next Instructions From Your Doctor A full course of antibiotics was completed for your urinary tract infection prior to discharge. Please follow-up with your primary care physician Please follow-up with [facility] in the next 2 to 4 weeks Please continue to get CPAP set up at home and use as prescribed. Thank you for allowing me to participate in your care, Radha ALBERT [facility] [phone] Scheduled Follow-Up Appointments Appointment Type When With Where Contact InformationCV OV 03/05/2023 02:00 PM EDT RAYMUNDO ROBLES [facility] [place] Mammogram Screening Bilateral w/ Aj 05/15/2023 10:30 AM [facility] [phone] BD Bone Density DEXA Axial Skeleton 05/15/2023 11:00 AM [facility] [phone] PC OV 06/10/2023 08:00 AM EST STU RIDLEY [facility] Follow Up Appointments Follow Up with STU RIDLEY When Within 2-4 days Where: [address] [place] [address]- [phone] Follow Up with [facility] When In 2 weeks Where: The Following Activity and Diet Have Been Ordered for You Discharge Activity - Ordered -- Resume your pre-hospitalization activity, 02/22/23 13:37:00 EDT Discharge Diet - Ordered -- No changes were made to your diet during your hospital stay. Please resume your pre hospitalization diet on discharge., 02/22/23 13:37:00 EDT Someone Will Contact You Regarding These Home Health Referrals Consult Home Health - OT - Ordered -- 02/22/23 13:37:00 EDT, Home Therapy Order: OT Eval & Treat, Home Therapy Instruction: Full weight bearing, Reason: ADL assistance Consult Home Health - PT - Ordered -- 02/22/23 13:37:00 EDT, Home Therapy Order: PT Eval & Treat, Reason: General Debility, Home Therapy Instruction: Full weight bearing Consult Home Health - RN - Ordered -- 02/22/23 13:37:00 EDT, Reason: Disease management Allergies Qvar (cough) metFORMIN (diarrhea, nausea) Medications Please ask your primary doctor or pharmacist before taking any other medication not listed, including over the counter drugs, herbal medications, vitamins and or supplements as they may interact with your home medications. What How Much When Instructions Last Dose New losartan (losartan 50 mg oral tablet) 1 tab(s) by mouth Once a day Pickup at [facility] Unchanged aspirin (aspirin 81 mg oral tablet, chewable) 1 tab(s) Chewed Once a day Duration: 30 Days Unchanged calcium-vitamin D (Caltrate 600 + D oral tablet) 1 tab(s) by mouth Two (2) times a day Unchanged furosemide (Lasix 20 mg oral tablet) 1 tab(s) by mouth Thursday / Thursday / Thursday Duration: 90 Days Unchanged levothyroxine (Synthroid 100 mcg (0.1 mg) oral tablet) 1 tab(s) by mouth Once a day Duration: 90 Days Unchanged metoclopramide (metoclopramide 10 mg oral tablet) 1 tab(s) by mouth Once a day Unchanged metoprolol (Toprol-XL 25 mg oral tablet, extended release) 1 tab(s) by mouth Once a day Duration: 90 Days Do not crush or chew (controlled release) Unchanged multivitamin with minerals (Centrum Silver oral tablet) 1 tab(s) by mouth Once a day Unchanged pantoprazole (pantoprazole 40 mg oral enteric coated tablet) 1 tab(s) by mouth Once a day Pharmacy Information [facility]: [id number] [place] [address] [phone] What How Much When Comments Stop Taking rosuvastatin (rosuvastatin 10 mg oral tablet) 1 tab(s) by mouth Once a day Please take this list to your next doctor s visit. Bring all medications you take, including over the counter medications, herbals and other supplements with you to your doctor s visit. Patients and families are reminded to discard old lists and to update any records with all medication providers or retail pharmacies. Education Materials Heart-Healthy Eating Plan Heart-healthy meal planning includes: Eating less unhealthy fats. Eating more healthy fats. Making other changes in your diet. Talk with your doctor or a diet specialist (dietitian) to create an eating plan that is right for you. What is my plan? Your doctor may recommend an eating plan that includes: Total fat: % or less of total calories a day. Saturated fat: % or less of total calories a day. Cholesterol: less than mg a day. What are tips for following this plan? Cooking Avoid frying your food. Try to bake, boil, grill, or broil it instead. You can also reduce fat by: Removing the skin from poultry. Removing all visible fats from meats. Steaming vegetables in water or broth. Meal planning At meals, divide your plate into four equal parts: ? Fill one-half of your plate with vegetables and green salads. ? Fill one-fourth of your plate with whole grains. ? Fill one-fourth of your plate with lean protein foods. Eat 4 5 servings of vegetables per day. A serving of vegetables is: ? 1 cup of raw or cooked vegetables. ? 2 cups of raw leafy greens. Eat 4 5 servings of fruit per day. A serving of fruit is: ? 1 medium whole fruit. ? cup of dried fruit. ? cup of fresh, frozen, or canned fruit. ? cup of 100% fruit juice. Eat more foods that have soluble fiber. These are apples, broccoli, carrots, beans, peas, and barley. Try to get 20 30 g of fiber per day. Eat 4 5 servings of nuts, legumes, and seeds per week: ? 1 serving of dried beans or legumes equals cup after being cooked. ? 1 serving of nuts is cup. ? 1 serving of seeds equals 1 tablespoon. General information Eat more home-cooked food. Eat less restaurant, buffet, and fast food. Limit or avoid alcohol. Limit foods that are high in starch and sugar. Avoid fried foods. Lose weight if you are overweight. Keep track of how much salt (sodium) you eat. This is important if you have high blood pressure. Ask your doctor to tell you more about this. Try to add vegetarian meals each week. Fats Choose healthy fats. These include olive oil and canola oil, flaxseeds, walnuts, almonds, and seeds. Eat more omega-3 fats. These include salmon, mackerel, sardines, tuna, flaxseed oil, and ground flaxseeds. Try to eat fish at least 2 times each week. Check food labels. Avoid foods with trans fats or high amounts of saturated fat. Limit saturated fats. ? These are often found in animal products, such as meats, butter, and cream. ? These are also found in plant foods, such as palm oil, palm kernel oil, and coconut oil. Avoid foods with partially hydrogenated oils in them. These have trans fats. Examples are stick margarine, some tub margarines, cookies, crackers, and other baked goods. What foods can I eat? Fruits All fresh, canned (in natural juice), or frozen fruits. Vegetables Fresh or frozen vegetables (raw, steamed, roasted, or grilled). Green salads. Grains Most grains. Choose whole wheat and whole grains most of the time. Rice and pasta, including brown rice and pastas made with whole wheat. Meats and other proteins Lean, well-trimmed beef, veal, pork, and randolph. Chicken and turkey without skin. All fish and shellfish. Wild duck, rabbit, pheasant, and venison. Egg whites or low-cholesterol egg substitutes. Dried beans, peas, lentils, and tofu. Seeds and most nuts. Dairy Low-fat or nonfat cheeses, including ricotta and mozzarella. Skim or 1% milk that is liquid, powdered, or evaporated. Buttermilk that is made with low-fat milk. Nonfat or low-fat yogurt. Fats and oils Non-hydrogenated (trans-free) margarines. Vegetable oils, including soybean, sesame, sunflower, olive, peanut, safflower, corn, canola, and cottonseed. Salad dressings or mayonnaise made with a vegetable oil. Beverages Mineral water. Coffee and tea. Diet carbonated beverages. Sweets and desserts Sherbet, gelatin, and fruit ice. Small amounts of dark chocolate. Limit all sweets and desserts. Seasonings and condiments All seasonings and condiments. The items listed above may not be a complete list of foods and drinks you can eat. Contact a dietitian for more options. What foods should I avoid? Fruits Canned fruit in heavy syrup. Fruit in cream or butter sauce. Fried fruit. Limit coconut. Vegetables Vegetables cooked in cheese, cream, or butter sauce. Fried vegetables. Grains Breads that are made with saturated or trans fats, oils, or whole milk. Croissants. Sweet rolls. Donuts. High-fat crackers, such as cheese crackers. Meats and other proteins Fatty meats, such as hot dogs, ribs, sausage, purcell, rib-eye roast or steak. High-fat deli meats, such as salami and bologna. Caviar. Domestic duck and goose. Organ meats, such as liver. Dairy Cream, sour cream, cream cheese, and creamed cottage cheese. Whole-milk cheeses. Whole or 2% milk that is liquid, evaporated, or condensed. Whole buttermilk. Cream sauce or high-fat cheese sauce. Yogurt that is made from whole milk. Fats and oils Meat fat, or shortening. [place] butter, hydrogenated oils, palm oil, coconut oil, palm kernel oil. Solid fats and shortenings, including purcell fat, salt pork, lard, and butter. Nondairy cream substitutes. Salad dressings with cheese or sour cream. Beverages Regular sodas and juice drinks with added sugar. Sweets and desserts Frosting. Pudding. Cookies. Cakes. Pies. Milk chocolate or white chocolate. Buttered syrups. Full-fat ice cream or ice cream drinks. The items listed above may not be a complete list of foods and drinks to avoid. Contact a dietitian for more information. Summary Heart-healthy meal planning includes eating less unhealthy fats, eating more healthy fats, and making other changes in your diet. Eat a balanced diet. This includes fruits and vegetables, low-fat or nonfat dairy, lean protein, nuts and legumes, whole grains, and heart-healthy oils and fats. This information is not intended to replace advice given to you by your health care provider. Make sure you discuss any questions you have with your health care provider. Document Released: 10/26/2012 Document Revised: 07/01/2018 Document Reviewed: 06/04/2018 [employer] Patient Education 2020 [employer] Additional Information VACCINATE! IT SAVES LIVES! Members of the community who have not yet received the COVID-19 vaccine and would like to receive it can visit one of [facility] vaccine clinics. There are many vaccine clinic locations within the [facility]. For locations and available times, please visit [email or web address].o hio.[email or web address] It is important to note that some COVID mobile vaccine clinics are held outdoors and may be canceled in rainy or stormy conditions. To learn more about pediatric vaccinations (ages 5-11), we invite you to visit the [facility] webpage. [email or web address] [email or web address] To learn more about the COVID-19 vaccine, we invite you to visit the CDC website for a list of frequently asked questions.https://www.cdc.gov/co ronavirus/2019-ncov/vaccines/faq .html [facility] Patient Portal Access Instructions: Stay connected with your healthcare team and access your personal medical information anytime with the [employer] Patient Portal. Please follow the directions below to create your [employer] account: 1.Access the email account you provided upon registration to the hospital/physician office.2.Look for an invitation email from [facility].3.Open the email and access the invitation link: Accept Invitation to [employer].4.Fill in the required doss to create your account. To access your account, visit [email or web address]. Click the blue button labeled Access Patient Portal and then log in with the username and password that you created in the steps above. You will be able to view your test results, lab results, a summary of your visits, upcoming appointments and more. There is also a convenient messaging option where you can send secure messages to your provider. In addition, you will have the ability to download any documents or summaries to your computer and/or send the information securely to a physician. Remember that your healthcare information is confidential, so carefully consider who you will allow to register on the [employer] Patient Portal for access to your information. You can also access the [employer] Patient Portal on the [facility] paz. Simply click on Patient Portal and then log into your account. If you would like to receive a full copy of your medical records, please contact the [facility] Medical Records Department by calling [phone], Thursday through Thursday between 8 a.m. and 4:30 p.m. HOW TO SAFELY DISPOSE OF PRESCRIPTION MEDICATIONS Please use one of the following methods to safely dispose of your unused medications. 1.Use a drug disposal kit: the drug disposal pouch allows you to safely discard your old and unused drugs. Ask your nurse to give you one when you are discharged.2.Visit a local take-back location: Many local pharmacies and police departments have programs that collect old and unwanted prescription drugs. Call your local pharmacy or go to http://bidu.com.br.640 Labs/3J9Nk3m to find one close to you.3.Make use of household items: Use cat litter or old coffee grounds to dispose medications if other options are not available. Mix your drugs with these household products, seal them in an airtight container and throw it into the garbage. Call [facility]: [phone] to be sure your drugs can be disposed of in this way. Some medicines may require a different approach.4.Never flush your medications down the toilet. IF YOU HAVE BEEN PRESCRIBED AN OPIOID FOR PAIN If you have been prescribed an opioid (such as hydrocodone, oxycodone or morphine), it is critical to understand the possible side effects and risks of opioid pain medications. Even when taken as directed, opioids can have several side effects including: Tolerance, meaning you might need to take more of a medication for the same pain relief. Nausea, vomiting and/or constipation. Sleepiness, dizziness, dry mouth, confusion, depression or itching. Physical dependence, meaning you have withdrawal symptoms when a medication is stopped, can develop within a few days. KNOW YOUR RESPONSIBILITIES It is important to know exactly how much and how often to take the opioid pain medications you are prescribed. Never take opioids in higher amounts or more often than prescribed. Do not combine opioids with alcohol or other drugs that cause drowsiness, such as benzodiazepines, also known as benzos, including diazepam and alprazolam, muscle relaxants or sleep aids. Never sell or share prescription opioids. This is illegal. Store opioids in a secure place and out of reach of others (including children, family, friends and visitors). The last page of this document has been signed and retained as a CHART COPY. Signatures Patient Education Materials Heart-Healthy Eating Plan, Yudu-[facility]Vq[facility] Medication Leaflets My discharge plan and instructions have been reviewed and explained to me and ISELVIN LUCINDA M understand my current condition and have read and understand these discharge instructions. I have received a written copy of the plan/instructions. If I have questions, I am aware that I should contact my doctor. Patient/Corporate Scheduler Signature: Date/Time: Relationship to Patient: Witness Name/Signature: Date/Time: [facility] 02-22-2023 Discharge summary Date of Service 02/22/23 Discharge Diagnosis 1. Multiple falls 2. E.Coli UTI 3. Asthenia 4. Gastroparesis 5. Bilateral hip pain 6. Unintentional weight loss 7. CHELSIE (obstructive sleep apnea) 8. Hypothyroidism 9. CAD (coronary artery disease) Additional Orders: Ordered: CMP,02/22/23 5:00:00 EDT, Next AM Draw (one day only), Blood, Once, Preferred Lab: [facility], Stop date 02/22/23 5:00:00 EDT Ordered: Communication Order (scheduled),02/22/23 13:34:00 EDT, Once, 02/22/23 13:34:00 EDT, Please give ceftrixaone prior to discharge Ordered: Consult Home Health - OT,02/22/23 13:37:00 EDT, Home Therapy Order: OT Eval & Treat, Home Therapy Instruction: Full weight bearing, Reason: ADL assistance Ordered: Consult Home Health - PT,02/22/23 13:37:00 EDT, Home Therapy Order: PT Eval & Treat, Reason: General Debility, Home Therapy Instruction: Full weight bearing Ordered: Consult Home Health - RN,02/22/23 13:37:00 EDT, Reason: Disease management Ordered: Discharge,02/22/23 13:37:00 EDT, Discharged to: Home Ordered: Discharge Activity,Resume your pre-hospitalization activity, 02/22/23 13:37:00 EDT Ordered: Discharge Diet,No changes were made to your diet during your hospital stay. Please resume your pre hospitalization diet on discharge., 02/22/23 13:37:00 EDT Other status: KCL,Start: 02/22/23 8:30:00 EDT, Dose = 40 mEq, = 2 tab(s), Oral, Once, Stop: 02/22/23 8:30:00 EDT, with food/meal, 02/22/23 8:28:00 EDT(Complete) Ordered: Magnesium Level,02/22/23 5:01:00 EDT, Next AM Draw (one day only), Blood, Once, Preferred Lab: [facility] facility, Stop date 02/22/23 5:01:00 EDT Ordered: losartan 50 mg oral tablet,Dose : 50 mg = 1 tab(s), Oral, qDay, 0 Refill(s) Hospital Course Patient is at 72 year old female with a past medical history significant for CAD, hypothyroidism, gastroparesis, GERD, and recently diagnosed sleep apnea with CPAP (not yet started) . Patient presented to [facility] emergency department with complaints of increased weakness, unintentional weight loss, falls. Patient's Radha at bedside who provides most of the information. Per patient has lost interest in activities, increased weakness and multiple falls. Patient denies any lightheadedness, dizziness or syncope associated with falls. Cardiac emergency department patient with evidence of urinary track infection and placed on ceftriaxone. CT head completed showing no acute abnormality. CXR unremarkable. CBC unremarkable. BMP with hyperglycemia otherwise unremarkable. TSH 0.075, free T41.171 And free T3 three 2.60. Troponin were negative. Patient was admitted to hospital further evaluation and neurology consult. Patient was evaluated by neurology. Patient underwent MRI of the brain and C-spine with and without contrast. No acute abnormalities. Patient was found to have E. coli urinary tract infection, pansensitive. Patient received 3 dose of IV ceftriaxone during hospitalization. Patient to follow up as outpatient for pending lab work (Pending labs acetylcholine receptor modulating/blocking antibody, P/Q type Ab, rapid plasma reagin test, B6, JEANNA, B1, heavy metal, copper,cryoglobulin, paraneoplastic panel). Neurology recommending outpatient EMG to further evaluate for neuromuscular disorders etc. Patient was evaluated by physical therapy and Occupational Therapy recommended patient discharged to a senior living facility. Unfortunately this would be private pay for patient. Patient is to return home with home PT and OT. Patient is in the process of obtaining CPAP machine at home. Recent outpatient sleep study per patient and . At this time patient is medically optimized for discharge home with close outpatient follow-up. Shared/split visit with my collaborating physician Dr. Chano Sams. This dictation was performed using voice recognition software and may include grammatical and/or spelling errors Allergies Qvar (cough) metFORMIN (diarrhea, nausea) Consults Consult to Case Management/Social Service (Consult to Case Management) - Ordered -- 02/21/23 16:19:39 EDT Consult to Dietitian (Consult to [facility] Adult) - Ordered -- 02/20/23 23:11:20 EDT Consult to Physician - Ordered -- 02/20/23 16:37:00 EDT, ADAN DECKER MD, Routine, Fatigue, weakness, Tremors.Neuromuscular process? Physical Exam Vitals and Measurements T: 36.8 C (Oral) TMIN: 36.6 C (Oral) TMAX: 37.1 C (Oral) HR: 80(Apical) RR: 18 BP: 150/72 SpO2: 94% Weight Dosing Weight: 68 kg (02/20/23) Dosing Weight: 68 kg (02/20/23) Physical Exam General: No acute distress. Alert and Appropriate . Flat affect Skin: No rash. Warm, Dry, Intact HEENT: Head is normocephalic and atraumatic. No lesions. Pupils equal in size. Extraocular movements within normal limits. Nose: No septal deviation. Mouth: Oropharynx mucosa is without lesion. Neck: Supple. No lymphadenopathy, thyromegaly noted. Lungs: Bilaterally diminished breath sounds with no crepitation or wheeze. Unlabored Cardiovascular: Heart is regular rhythm, S1S2, No extra-audible heart tones Abdomen: Abdomen is soft, nontender. Bowel sounds positive all four quadrants. Extremities: No clubbing, cyanosis or edema. Peripheral pulses palpable. No calf tenderness. Adequate peripheral circulation. Neurological: The patient is awake, oriented to time, people and place. Following simple commands, moving all extremities. Genearlized weakness Code Status Code Status - Ordered -- 02/20/23 16:37:00 EDT, Full Code, Constant Order Admission Date 02/20/23 Discharge Date 02/22/23 Patient Instructions A full course of antibiotics was completed for your urinary tract infection prior to discharge. Please follow-up with your primary care physician Please follow-up with [facility] in the next 2 to 4 weeks Please continue to get CPAP set up at home and use as prescribed. Thank you for allowing me to participate in your care, Radha dArian ANDRY-DIRECTOR WEIGHTS AND MEASURES [facility] [phone] Medications New Prescription losartan (losartan 50 mg oral tablet)1 tab(s) by mouth once a day. Refills: 0. Unchanged aspirin (aspirin 81 mg oral tablet, chewable)1 tab(s) Chewed once a day for 30 Days. Refills: 3. calcium-vitamin D (Caltrate 600 + D oral tablet)1 tab(s) by mouth two (2) times a day. furosemide (Lasix 20 mg oral tablet)1 tab(s) by mouth Thursday / Thursday / Thursday for 90 Days. Refills: 2. levothyroxine (Synthroid 100 mcg (0.1 mg) oral tablet)1 tab(s) by mouth once a day for 90 Days. Refills: 3. metoclopramide (metoclopramide 10 mg oral tablet)1 tab(s) by mouth once a day. metoprolol (Toprol-XL 25 mg oral tablet, extended release)1 tab(s) by mouth once a day for 90 Days. Do not crush or chew (controlled release). Refills: 2. multivitamin with minerals (Centrum Silver oral tablet)1 tab(s) by mouth once a day. pantoprazole (pantoprazole 40 mg oral enteric coated tablet)1 tab(s) by mouth once a day. Refills: 3. Discontinued rosuvastatin (rosuvastatin 10 mg oral tablet)1 tab(s) by mouth once a day. Refills: 3. Follow Up Follow Up with STU RIDLEY APRN-DIRECTOR WEIGHTS AND MEASURES When Within 2-4 days Where: [address] [facility] [place] [address] [phone] [facility] When In 2 weeks Where: Follow Up Appointments Consult Home Health - OT - Ordered -- 02/22/23 13:37:00 EDT, Home Therapy Order: OT Eval & Treat, Home Therapy Instruction: Full weight bearing, Reason: ADL assistance Consult Home Health - PT - Ordered -- 02/22/23 13:37:00 EDT, Home Therapy Order: PT Eval & Treat, Reason: General Debility, Home Therapy Instruction: Full weight bearing Consult Home Health - RN - Ordered -- 02/22/23 13:37:00 EDT, Reason: Disease management Discharge Diet Discharge Diet - Ordered -- No changes were made to your diet during your hospital stay. Please resume your pre hospitalization diet on discharge., 02/22/23 13:37:00 EDT Discharge Activity Discharge Activity - Ordered -- Resume your pre-hospitalization activity, 02/22/23 13:37:00 EDT Condition on Discharge Stable Discharge Disposition Home Home PT/OT Information Provided To Patient Radhames at bedside Time Spent 32 minutes Digitally Signed by RADHA ADRIAN on 02/22/2023 02:40 PM [facility] 02-22-2023 Neurology Progress note Date of Service 02/22/23 Chief Complaint Weakness Subjective Patient seen and examined without family present. She appears alert, calm, interactive, following commands while resting in bed. Does not appear to have any respiratory distress while in bed however reports a cough. Bedside RN reports no acute issues overnight however that patient did not tolerate wearing ordered CPAP that she refused to wear it any further after having on for about an hour. On examination, patient is able to state her name, that she is at the hospital, the month and states. She reports her weakness is not any different. Feels generally weak and that she is not currently experiencing any paresthesias. She denies any vision disturbances, sensory loss, speech disturbances, headache, nausea, vomiting. She reports swallowing issues today. Her weakness appears unchanged. No new focal findings on exam. States she hasn't been up out of bed. Spoke with on phone has been in to see her says she seems more alert but her weakness appears unchanged. Objective Vitals and Measurements T: 36.8 C (Oral) TMIN: 36.6 C (Oral) TMAX: 37.1 C (Oral) HR: 80(Apical) RR: 18 BP: 150/72 SpO2: 94% Intake and Output 7AM Yesterday to 7AM Today Intake and Output (Last 24 hours) Intake Oral Intake 240.00 Output Urine Voided 300.00 Urinary Catheter Output: 1250.00 Stool Count 0.00 Urine Count 1.00 Diaper Count 1.00 Total Summary Total Intake 240.00 Total Output 1550.00 Fluid Balance -1310.00 Physical Exam Mental Status: Alert, following commands Orientation: oriented to self, hospital and month Language: normal fluency aside from psychomotor slowing, normal simple comprehension, reduced complex comprehension Speech: non-dysarthric Cranial Nerves: Pupils: 4mm -> 2mm bilaterally Visual Doss: full to confrontation bilaterally CN III, IV, : EOMI. No nystagmus CN V: normal light touch and temp sensation in V1, V2, V3, bilaterally. CN VII: face symmetrical. CN VIII: auditory acuity intact to bedside testing Sensation: Light touch: intact in all 4 extremities Temp: intact in all 4 extremities Motor: Tone reduced in all 4 Involuntary movements: no clear tremor was seen during my exam Strength: LUE: 4+/5 proximally, 4+/5 distally RUE: 4+/5 proximally, 4+/5 distally LLE: 3+/5 proximally, 4+/5 distally RLE: 3+/5 proximally, 4+/5 distally Reflexes: R L B 3 3 BR 3 3 P 3+ 3 Toes down down Coordination: Adewpn-xzim-baujll movements: intact Weight Dosing Weight: 68 kg (02/20/23) Dosing Weight: 68 kg (02/20/23) Medications Medications (13) Active Scheduled: (8) aspirin 81 mg Chewable 81 mg 1 tab(s), Chewed, qDay cefTRIAXone IVP syringe 1 gram(s) 10 mL, IV Push (INT), Daily enoxaparin 40 mg/ 0.4mL syringe 40 mg 0.4 mL, Subcutaneous, qDay levothyroxine 100 mcg tablet 100 mcg 1 tab(s), Oral, qDay losartan 50 mg tablet 50 mg 1 tab(s), Oral, qDay metoclopramide 10 mg tablet 10 mg 1 tab(s), Oral, qDay metoprolol succinate 25 mg ER tablet 25 mg 1 tab(s), Oral, qDay pantoprazole 40 mg EC tablet 40 mg 1 tab(s), Oral, qDay Continuous: (1) NS (0.9% nacl) 1,000 mL 1,000 mL, Intravenous, 100 mL/hr PRN: (4) acetaminophen 325 mg Tablet 650 mg 2 tab(s), Oral, q6hr benzonatate 100 mg Capsule 100 mg 1 cap(s), Oral, TID dextrose 50% Solution Disp syringe 50 mL 12.5 gram(s) 25 mL, IV Push, AsDirected melatonin 3 mg tablet 3 mg 1 tab(s), Oral, qHS Lab Results 02/21 14:53 WBC: 6.7 Hgb: 12.3 Hct: 36.2 Platelet: 196 Neutrophil %: 74.9 Glucose Level: 183 H Sodium Level: 138 Potassium Level: 3.2 L BUN: 9.0 Creatinine Lvl (s): 0.53 Imaging Results and Diagnostics MRI Spine Cervical w/ + w/o Contrast Result Date: February 21, 2023 Verified By: SIXTO IRBY MD CLINICAL STATEMENT: IMPRESSION: Minor degenerative changes as discussed above. No significant abnormality. MRI Brain w/ + w/o Contrast Result Date: February 21, 2023 Verified By: TIEN WRIGHT MD CLINICAL STATEMENT: IMPRESSION: 1. No acute intracranial abnormality or abnormal enhancement.2. Minimal nonspecific white matter disease may reflect chronicmicroangiopathy. CT Head or Brain w/o Contrast Result Date: February 20, 2023 Verified By: PANFILO BANDA MD CLINICAL STATEMENT: IMPRESSION: No acute intracranial pathology. COMMENT: Changes resultant from ischemia (even significant ischemia) mayoften be inapparent on CT exam, particularly if imaged early. Additionally,early changes due to neoplastic or inflammatory processes can be subtle tothe extent that they are not prospectively noted. Therefore, if symptomspersist, or clinical suspicion for pathology remains, further evaluation maybe obtained with MRI. XR Chest 1 View Result Date: February 20, 2023 Verified By: PANFILO HUITRON DO CLINICAL STATEMENT: IMPRESSION: No acute radiographic findings. Assessment/Plan IMPRESSION Somnolence Weakness It certainly appears that she has a sleep disorder that is causing her severe degree of progressive drowsiness. However, her neurologic exam is showing evidence of objective dysfunction, primarily apparent bulbar and extremity weakness, with hypotonia yet brisk reflexes. It is also likely that her UTI is causing an acute exacerbation of the above process(es). There are numerous considerations underlining neuromuscular disorder, nutritional deficiencies/imbalances or a ?autoimmune disorder. It would be useful to see if respiratory support overnight leads to improvement in her symptoms. Pt reported she only worn it for 1 hr as couldn't tolerate any longer overnight, per nursing than she refused to be placed back on. She does appear more alert today, interactive but states she feels her weakness is unchanged. PLAN: -MRI brain w/wo contrast no acute intracranial abnormality or abnormal enhancement. -MRI cervical spine w/wo contrast minor degenerative changes as discussed above, no significant abnormality noted -Labs reviewed today. Pending labs acetylcholine receptor modulating/blocking antibody, P/Q type Ab, rapid plasma reagin test, B6, JEANNA, B1, heavy metal, copper,cryoglobulin, paraneoplastic panel. -Statin was stopped for now. Agree as can cause muscle weakness e.g statin induced myopathy. Can be reevaluated OP PCP/Neurology if safe to continue. -Will defer UTI management/antibiotics to primary team -GI/DVT prophylaxis per primary team -PT/OT/ST per recommendations -Fall precautions -Further medical management per medical team -Follow up with Neurology in 2 weeks as outpatient, recommend OP EMG to further evaluate for neuromuscular disorders etc and followup with pending labs studies. Discussed plan with patient, understood. Updated Radhames, understood plan. Discussed plan with collaborating physician who agrees with plan Independently spent 50 minutes with the patient Will follow labs periodically follow. please reach out if have any concerns or call with questions if any. Thank you for allowing us to participate in patients care and management. All questions were answered Digitally Signed by DIANA ESQUIVEL on 02/22/2023 02:00 PM [facility] 02-22-2023 Note . MICRO - Microbiology PROCEDURE: Urine Culture [*1] SOURCE: Urine, Clean Catch BODY SITE: COLLECTED DATE/TIME: 02/20/2023 16:49 EDT RECEIVED DATE/TIME: 02/20/2023 17:42 EDT START DATE/TIME: 02/20/2023 17:42 EDT FREE TEXT SOURCE: FINAL REPORTS Final Report [] Verified Date/Time/Personnel: 02/22/2023 08:09 EDT >100,000 cfu/ml Escherichia coli PRELIMINARY REPORTS Preliminary Report [] Verified Date/Time/Personnel: 02/21/2023 12:28 EDT >100,000 cfu/ml Escherichia coli ABIMAEL to follow SUSCEPTIBILITY RESULTS Escherichia coli Antibiotic ABIMAEL Dilut ABIMAEL Inter Ampicillin <=8 Susceptible Ampicillin/ <=4/2 Susceptible Sulbactam Aztreonam <=4 Susceptible Cefazolin <=2 Susceptible Ciprofloxacin <=0.25 Susceptible Ertapenem <=0.5 Susceptible Gentamicin <=2 Susceptible Imipenem <=1 Susceptible Levofloxacin <=0.5 Susceptible Meropenem <=1 Susceptible Minocycline <=4 Susceptible Nitrofurantoin <=32 Susceptible Trimethoprim/ <=0.5/9.5 Susceptible Sulfa Performing Locations *1: This test was performed at: [facility], [address] [place] [address], [id number] , [facility] ([place]) 02-21-2023 Note ORIGINAL EXAMINATION: MRI OF THE CERVICAL SPINE WITHOUT AND WITH CONTRAST 02/21/2023 9:01 pm: TECHNIQUE: Multiplanar multisequence MRI of the cervical spine was performed without and with the administration of intravenous contrast. COMPARISON: None. HISTORY: ORDERING SYSTEM PROVIDED HISTORY: Reason for Exam: Weakness in all 4 extremities FINDINGS: Vertebral body height and alignment is normal. There is no bone marrow edema identified. Mild degenerative disc desiccation is present throughout. C2-3: No significant abnormality. C3-4: Very minor spondylosis without significant mass effect. C4-5: No significant abnormality. C5-6: Mild spondylosis with slight flattening of the anterior aspect of the thecal sac. No foraminal compromise or cord compression seen. C6-7: Spondylosis is noted eccentric toward the right with mild flattening of the thecal sac. No cord contact. C7-T1: No significant abnormality. The signal intensity of the cervical cord and the cervicomedullary junction is normal. No abnormal contrast enhancement is demonstrated. No additional contributory finding seen. IMPRESSION: Minor degenerative changes as discussed above. No significant abnormality. Interpreted by: Sixto Irby MD Preliminary Report By: Sixto Irby MD Electronically signed By Sixto Irby MD Dictated Date: 02/22/2023 8:56:48 AM Prelim Date: 02/22/2023 9:00:27 AM Sign Date: 02/22/2023 9:00:27 AM Ordering Provider: JOSEPH BARNEY [facility] 02-21-2023 Note ORIGINAL EXAMINATION: MRI OF THE BRAIN WITHOUT AND WITH CONTRAST 02/21/2023 9:01 pm TECHNIQUE: Multiplanar multisequence MRI of the head/brain was performed without and with the administration of intravenous contrast. COMPARISON: CT head 02/20/2023. HISTORY: ORDERING SYSTEM PROVIDED HISTORY: Reason for Exam: Weakness in all 4 extremities FINDINGS: INTRACRANIAL STRUCTURES/VENTRICLES: There is no acute infarct. There are minimal scattered foci of T2/FLAIR hyperintensity in the periventricular and subcortical white matter, which are nonspecific, possibly due to chronic microangiopathy. No mass effect or midline shift. No evidence of an acute intracranial hemorrhage. The ventricles and sulci are normal in size and configuration. The sellar/suprasellar regions appear unremarkable. The normal signal voids within the major intracranial vessels appear maintained. No abnormal focus of enhancement is seen within the brain. ORBITS: The visualized portion of the orbits demonstrate no acute abnormality. SINUSES: The visualized paranasal sinuses and mastoid air cells demonstrate no acute abnormality. BONES/SOFT TISSUES: The bone marrow signal intensity appears normal. The soft tissues demonstrate no acute abnormality. IMPRESSION: 1. No acute intracranial abnormality or abnormal enhancement. 2. Minimal nonspecific white matter disease may reflect chronic microangiopathy. Interpreted by: Tien Wright Preliminary Report By: Tien Wright Electronically signed By Tien Wright Dictated Date: 02/21/2023 9:57:49 PM Prelim Date: 02/21/2023 10:06:17 PM Sign Date: 02/21/2023 10:06:17 PM Ordering Provider: JOSEPH BARNEY [facility] 02-21-2023 Note Date of Service 02/21/23 Chief Complaint Weakness Subjective Patient is at 72 year old female with a past medical history significant for CAD, hypothyroidism, gastroparesis, GERD, and recently diagnosed sleep apnea with CPAP (not yet started) . Patient presented to [place] emergency department with complaints of increased weakness, unintentional weight loss, falls. Patient's Radha at bedside who provides most of the information. Per patient has lost interest in activities, increased weakness and multiple falls. Patient denies any lightheadedness, dizziness or syncope associated with falls. Cardiac emergency department patient with evidence of urinary track infection and placed on ceftriaxone. CT head completed showing no acute abnormality. CXR unremarkable. CBC unremarkable. BMP with hyperglycemia otherwise unremarkable. TSH 0.075, free T41.171 And free T3 three 2.60. Troponin was negative. Patient is admitted to hospital further evaluation and neurology consult. Patient resting in bed, (Radhames) at bedside. Patient is alert. She is oriented. She answers questions appropriately. Patient c/o generalized weakness, shuffling gait, and 30 lb unintentional weight loss over the last several months. Patient denies shortness of breath, chest pain, palpitations, dizziness, blurred vision, difficulty speaking, nausea, vomiting, diarrhea, constipation, urinary symptoms, night sweats, cough, fever and chills. Objective Vitals and Measurements T: 37.5 C (Oral) TMIN: 36.8 C (Oral) TMAX: 37.5 C (Oral) HR: 100(Apical) RR: 20 BP: 181/88 SpO2: 94% HT: 162 cm WT: 68 kg BMI: 25.91 Intake and Output 7AM Yesterday to 7AM Today Intake and Output (Last 24 hours) Intake Oral Intake 240.00 Output Urinary Catheter Output: 400.00 Stool Count 0.00 Urine Count 1.00 Total Summary Total Intake 240.00 Total Output 400.00 Fluid Balance -160.00 Physical Exam Vitals Signs(Last 24 hrs)__ Last Charted Minimum Maximum Temp H 37.5(FEB 21 07:08) 36.8(FEB 20 23:21) H 37.5(FEB 21 07:08) Heart Rate 100(FEB 21 09:50) 100(FEB 21 09:50) 100(FEB 21 09:50) Resp Rate 20(FEB 21 07:08) 18(FEB 20 17:46) H 21(FEB 20 20:22) SBP H 181(FEB 21 07:08) 131(FEB 20 23:21) H 181(FEB 21 07:08) DBP 88(FEB 21 07:08) 64(FEB 20 20:22) 88(FEB 21 07:08) Physical Exam General: No acute distress. Alert and Appropriate . Flat affect Skin: No rash. Warm, Dry, Intact HEENT: Head is normocephalic and atraumatic. No lesions. Pupils equal in size. Extraocular movements within normal limits. Nose: No septal deviation. Mouth: Oropharynx mucosa is without lesion. Neck: Supple. No lymphadenopathy, thyromegaly noted. Lungs: Bilaterally diminished breath sounds with no crepitation or wheeze. Unlabored Cardiovascular: Heart is regular rhythm, S1S2, No extra-audible heart tones Abdomen: Abdomen is soft, nontender. Bowel sounds positive all four quadrants. Extremities: No clubbing, cyanosis or edema. Peripheral pulses palpable. No calf tenderness. Adequate peripheral circulation. Neurological: The patient is awake, oriented to time, people and place. Following simple commands, moving all extremities. Genearlized weakness Weight Dosing Weight: 68 kg (02/20/23) Dosing Weight: 68 kg (02/20/23) Medications Medications (12) Active Scheduled: (8) aspirin 81 mg Chewable 81 mg 1 tab(s), Chewed, qDay cefTRIAXone IVP syringe 1 gram(s) 10 mL, IV Push (INT), Daily enoxaparin 40 mg/ 0.4mL syringe 40 mg 0.4 mL, Subcutaneous, qDay levothyroxine 100 mcg tablet 100 mcg 1 tab(s), Oral, qDay losartan 50 mg tablet 50 mg 1 tab(s), Oral, qDay metoprolol succinate 25 mg ER tablet 25 mg 1 tab(s), Oral, qDay pantoprazole 40 mg EC tablet 40 mg 1 tab(s), Oral, qDay rosuvastatin 20 mg tablet 40 mg 2 tab(s), Oral, qDay Continuous: (1) NS (0.9% nacl) 1,000 mL 1,000 mL, Intravenous, 100 mL/hr PRN: (3) acetaminophen 325 mg Tablet 650 mg 2 tab(s), Oral, q6hr dextrose 50% Solution Disp syringe 50 mL 12.5 gram(s) 25 mL, IV Push, AsDirected melatonin 3 mg tablet 3 mg 1 tab(s), Oral, qHS Lab Results 02/20 12:02 WBC: 9.4 Hgb: 14.0 Hct: 41.1 Platelet: 223 Neutrophil %: 86.6 H Glucose Level: 165 H Sodium Level: 140 Potassium Level: 3.6 BUN: 10.0 Creatinine Lvl (s): 0.57 EKG EKG (ED) - Completed -- 02/20/23 11:59:00 EDT, 02/20/23 11:59:00 EDT Assessment/Plan 1. Multiple falls 2. E.Coli UTI 3. Asthenia 4. Gastroparesis 5. Bilateral hip pain 6. Unintentional weight loss 7. CHELSIE (obstructive sleep apnea) 8. Hypothyroidism 9. CAD (coronary artery disease) Multiple falls/ Asthenia - Neurology involved. Appreciate input. Discussed with Dr. Barney - Physical therapy and occupational therapy consulted. Appreciate input. -MRI of the brain pending. - MRI of the C spine E.Coli UTI- Urine culture sensitives pending. Will follow. Continue ceftriaxone. Newly diagnosed CHELSIE, Cpap ordered - Will check venous PH. Hypothyroidism - TSH/T3/T4- reviewed. CAD- continue asa/statin -heart cath completed 02/05/23 Gastroparesis- patient follows with Dr. Rea. Recent EGD. Patient recently started on Reglan. Plan of care discussed in depth with patient and at bedside. Patient verbalizes understanding and is agreeable plan of care. Shared/split visit with my collaborating physician Dr. Chano Sams. This dictation was performed using voice recognition software and may include grammatical and/or spelling errors Orders: metoclopramide, Start: 02/21/23 14:09:00 EDT, Dose = 10 mg, = 1 tab(s), Oral, qDay, 02/21/23 14:09:00 EDT Consult to Occupational Therapy Consult to Physical Therapy pH (venous) Digitally Signed by RADHA ADRIAN on 02/21/2023 02:16 PM [facility] 02-21-2023 Neurology Consult note Date of Service February 21, 2023 Reason for Consultation Weakness Referring Physician Dr. Jimenez History of Present Illness 72-year-old female. Her provided most of the history. Being back several months she has had increased daytime sleepiness. This has been gradually worsening. She is not to the point where she is sleeping 12 to 15 hours/day. Along with this she has had a significant degree of weakness. Much of her weakness occurs in the setting of drowsiness however her reports that even when she is fully awake she still feels weak, has difficulty ambulating, and she has also had difficulty swallowing over the past few weeks. She endorses headaches which she could not say when exactly they started. They are described as diffuse. She has not had any diplopia. She reports muscle fasciculations in her hands. She denies pain in her muscles but does have chronic joint pains. She endorses paresthesias in all 4 extremities but could not elaborate further; currently they are not present. She is often tremulous. She has had confusion over the past few weeks; for example when she was in the emergency room she was disoriented and thought that she was still at home. She had a sleep study done as an outpatient and her reports that the home sleep apnea and she was ordered a CPAP but has not yet started this. A neurologist referral was also made. When I saw her she was very drowsy and this may have limited her reported information. Review of Systems Full ROS was deferred due to drowsiness. Physical Exam Vitals and Measurements T: 37.5 C (Oral) TMIN: 36.8 C (Oral) TMAX: 37.5 C (Oral) HR: 100(Apical) RR: 20 BP: 181/88 SpO2: 94% HT: 162 cm WT: 68 kg BMI: 25.91 Weight Dosing Weight: 68 kg (02/20/23) Dosing Weight: 68 kg (02/20/23) Neurologic Exam Mental Status: Drowsy, falling back asleep when examined Orientation: oriented to self and hospital Language: normal fluency aside from psychomotor slowing, normal simple comprehension, reduced complex comprehension Speech: non-dysarthric Cranial Nerves: Pupils: 4mm -> 2mm bilaterally Visual Doss: full to confrontation bilaterally Fundus: not well visualized as the patient wasn't tolerating the light and having trouble fixating CN III, IV, : EOMI. No nystagmus CN V: normal light touch and temp sensation in V1, V2, V3, bilaterally. CN VII: ?facial diplegia vs. lack of muscle activation d/t drowsiness - was not able to fully smile, and only weakly squeezed eyes shut, weak seal formation with her lips CN VIII: auditory acuity intact to bedside testing Sensation: Light touch: intact in all 4 extremities Temp: intact in all 4 extremities Vibration: reduced in RLE proximally and distally Motor: Tone reduced in all 4 Involuntary movements: no clear tremor was seen during my exam Strength: LUE: 4+/5 proximally, 4+/5 distally RUE: 4+/5 proximally, 4+/5 distally LLE: 3+/5 proximally, 4+/5 distally RLE: 3+/5 proximally, 4+/5 distally Reflexes: R L B 3 3 BR 3 3 P 3+ 3 (crossed adduction on the right) Toes down down Slight Dorman's bilaterally Coordination: Xwduzk-qzed-plwabb movements slightly dysmetric R > L Lab Results 02/20 12:02 WBC: 9.4 Hgb: 14.0 Hct: 41.1 Platelet: 223 Neutrophil %: 86.6 H Glucose Level: 165 H Sodium Level: 140 Potassium Level: 3.6 BUN: 10.0 Creatinine Lvl (s): 0.57 Imaging Results and Diagnostics CT Head or Brain w/o Contrast Result Date: February 20, 2023 Verified By: PANFILO BANDA MD CLINICAL STATEMENT: IMPRESSION: No acute intracranial pathology. COMMENT: Changes resultant from ischemia (even significant ischemia) mayoften be inapparent on CT exam, particularly if imaged early. Additionally,early changes due to neoplastic or inflammatory processes can be subtle tothe extent that they are not prospectively noted. Therefore, if symptomspersist, or clinical suspicion for pathology remains, further evaluation maybe obtained with MRI. XR Chest 1 View Result Date: February 20, 2023 Verified By: PANFILO HUITRON DO CLINICAL STATEMENT: IMPRESSION: No acute radiographic findings. Assessment/Plan Somnolence Weakness It certainly appears that she has a sleep disorder that is causing her severe degree of progressive drowsiness. However, whether this explains the whole picture is to be determined. Her neurologic exam is showing evidence of objective dysfunction, primarily apparent bulbar and extremity weakness, with hypotonia yet brisk reflexes. There are numerous considerations and there may be more than one etiology occurring. It is also likely that her UTI is causing an acute exacerbation of the above process(es). Will start with imaging her brain and spine, as well as sending some labwork. It would be useful to see if respiratory support overnight leads to improvement into tomorrow. Her statin was stopped for now as well. Will follow-up. A total of 60 minutes was spent on this case (including reviewing the chart, taking a history, examining the patient, generating a diagnosis/plan, and discussing with the patient and family.) D/w the primary team as well. Problem List/Past Medical History Ongoing Bilateral hip pain Chest pain Chronic dyspnea Daytime somnolence Dyspnea on exertion Eustachian tube dysfunction Fatigue General weakness GERD (gastroesophageal reflux disease) Hyperlipidemia Hypothyroid Joint pain Leg pain Medicare annual wellness visit, subsequent Memory loss Obstructive sleep apnea Osteopenia Overweight (BMI 25.0-29.9) Postmenopausal Screening for breast cancer Sleep apnea, obstructive Snoring Thrush Type 2 diabetes mellitus without complication, with no history of insulin use Vertigo Historical Cystocele with prolapse Elevated fasting glucose Laceration of external ear Type 2 diabetes mellitus Viral URI Procedure/Surgical History Cardiac catheterization: 05/27/22 Echocardiogram: 05/24/22 Pelvic Prolapse Repair: 03/21/19 Abdominal hysterectomy: 2006 Aspiration of ectopic from cornu of fallopian tube: 1976 Gastroparesis Lumpectomy Medications Inpatient acetaminophen, 650 mg= 2 tab(s), Oral, q6hr, PRN aspirin 81 mg oral tablet, chewable, 81 mg= 1 tab(s), Chewed, qDay cefTRIAXone, 1 gram(s)= 10 mL, IV Push (INT), Daily Dextrose 50% IV Push, 12.5 gram(s)= 25 mL, IV Push, AsDirected, PRN losartan, 50 mg= 1 tab(s), Oral, qDay Lovenox, 40 mg= 0.4 mL, Subcutaneous, qDay melatonin, 3 mg= 1 tab(s), Oral, qHS, PRN metoclopramide, 10 mg= 1 tab(s), Oral, qDay NS 1,000 mL, 1000 mL, Intravenous pantoprazole, 40 mg= 1 tab(s), Oral, qDay Synthroid, 100 mcg= 1 tab(s), Oral, qDay Toprol-XL, 25 mg= 1 tab(s), Oral, qDay Home aspirin 81 mg oral tablet, chewable, 81 mg= 1 tab(s), Chewed, qDay, 3 refills Caltrate 600 + D oral tablet, 1 tab(s), Oral, BID Centrum Silver oral tablet, 1 tab(s), Oral, qDay Lasix 20 mg oral tablet, 20 mg= 1 tab(s), Oral, Thu/Thu/Thu, 2 refills metoclopramide 10 mg oral tablet, 10 mg= 1 tab(s), Oral, qDay pantoprazole 40 mg oral enteric coated tablet, 40 mg= 1 tab(s), Oral, qDay, 3 refills rosuvastatin 10 mg oral tablet, 10 mg= 1 tab(s), Oral, qDay, 3 refills Synthroid 100 mcg (0.1 mg) oral tablet, 100 mcg= 1 tab(s), Oral, qDay, 3 refills Toprol-XL 25 mg oral tablet, extended release, 25 mg= 1 tab(s), Oral, qDay, 2 refills Allergies Qvar (cough) metFORMIN (diarrhea, nausea) Social History Smoking Status - 02/01/2018 Never smoker Alcohol - Denies Alcohol Use, 01/11/2017 Use: Never., 01/07/2019 Employment/School Status: Retired., 01/07/2019 Exercise Home/Environment None Domestic Concerns:. Living situation: Home/Independent., 01/07/2019 Nutrition/Health Type of diet: Regular. Appetite Good. Eating Difficulties None. Caffeine intake amount: none., 07/05/2019 Sexual Self described orientation: Straight or heterosexual. Gender Identity: Identifies as female., 02/05/2023 Substance Abuse - Denies Substance Abuse, 01/11/2017 Use: Never., 01/07/2019 Tobacco Nicotine Use: Never (less than 100 in lifetime). Exposure to Tobacco Smoke Lives in non-smoking home., 07/05/2019 Family History Arthritis: Mother. Breast cancer: Sister. Hypothyroidism: Father. Malignant neoplasm: Father. Parkinson's disease: Father. Stroke: Mother and Sister. Digitally Signed by JOSEPH BARNEY MD on 02/21/2023 02:45 PM Digitally Signed by JOSEPH BARNEY MD on 02/21/2023 04:12 PM [facility] 02-21-2023 Note Date of Service 02/21/23 Chief Complaint Weakness Subjective Patient is at 72 year old female with a past medical history significant for CAD, hypothyroidism, gastroparesis, GERD, and recently diagnosed sleep apnea with CPAP (not yet started) . Patient presented to [place] emergency department with complaints of increased weakness, unintentional weight loss, falls. Patient's Radha at bedside who provides most of the information. Per patient has lost interest in activities, increased weakness and multiple falls. Patient denies any lightheadedness, dizziness or syncope associated with falls. Cardiac emergency department patient with evidence of urinary track infection and placed on ceftriaxone. CT head completed showing no acute abnormality. CXR unremarkable. CBC unremarkable. BMP with hyperglycemia otherwise unremarkable. TSH 0.075, free T41.171 And free T3 three 2.60. Troponin was negative. Patient is admitted to hospital further evaluation and neurology consult. Patient resting in bed, (Radhames) at bedside. Patient is alert. She is oriented. She answers questions appropriately. Patient c/o generalized weakness, shuffling gait, and 30 lb unintentional weight loss over the last several months. Patient denies shortness of breath, chest pain, palpitations, dizziness, blurred vision, difficulty speaking, nausea, vomiting, diarrhea, constipation, urinary symptoms, night sweats, cough, fever and chills. Objective Vitals and Measurements T: 37.5 C (Oral) TMIN: 36.8 C (Oral) TMAX: 37.5 C (Oral) HR: 100(Apical) RR: 20 BP: 181/88 SpO2: 94% HT: 162 cm WT: 68 kg BMI: 25.91 Intake and Output 7AM Yesterday to 7AM Today Intake and Output (Last 24 hours) Intake Oral Intake 240.00 Output Urinary Catheter Output: 400.00 Stool Count 0.00 Urine Count 1.00 Total Summary Total Intake 240.00 Total Output 400.00 Fluid Balance -160.00 Physical Exam Vitals Signs(Last 24 hrs)__ Last Charted Minimum Maximum Temp H 37.5(FEB 21 07:08) 36.8(FEB 20 23:21) H 37.5(FEB 21 07:08) Heart Rate 100(FEB 21 09:50) 100(FEB 21 09:50) 100(FEB 21 09:50) Resp Rate 20(FEB 21 07:08) 18(FEB 20 17:46) H 21(FEB 20 20:22) SBP H 181(FEB 21 07:08) 131(FEB 20 23:21) H 181(FEB 21 07:08) DBP 88(FEB 21 07:08) 64(FEB 20 20:22) 88(FEB 21 07:08) Physical Exam General: No acute distress. Alert and Appropriate . Flat affect Skin: No rash. Warm, Dry, Intact HEENT: Head is normocephalic and atraumatic. No lesions. Pupils equal in size. Extraocular movements within normal limits. Nose: No septal deviation. Mouth: Oropharynx mucosa is without lesion. Neck: Supple. No lymphadenopathy, thyromegaly noted. Lungs: Bilaterally diminished breath sounds with no crepitation or wheeze. Unlabored Cardiovascular: Heart is regular rhythm, S1S2, No extra-audible heart tones Abdomen: Abdomen is soft, nontender. Bowel sounds positive all four quadrants. Extremities: No clubbing, cyanosis or edema. Peripheral pulses palpable. No calf tenderness. Adequate peripheral circulation. Neurological: The patient is awake, oriented to time, people and place. Following simple commands, moving all extremities. Genearlized weakness Weight Dosing Weight: 68 kg (02/20/23) Dosing Weight: 68 kg (02/20/23) Medications Medications (12) Active Scheduled: (8) aspirin 81 mg Chewable 81 mg 1 tab(s), Chewed, qDay cefTRIAXone IVP syringe 1 gram(s) 10 mL, IV Push (INT), Daily enoxaparin 40 mg/ 0.4mL syringe 40 mg 0.4 mL, Subcutaneous, qDay levothyroxine 100 mcg tablet 100 mcg 1 tab(s), Oral, qDay losartan 50 mg tablet 50 mg 1 tab(s), Oral, qDay metoprolol succinate 25 mg ER tablet 25 mg 1 tab(s), Oral, qDay pantoprazole 40 mg EC tablet 40 mg 1 tab(s), Oral, qDay rosuvastatin 20 mg tablet 40 mg 2 tab(s), Oral, qDay Continuous: (1) NS (0.9% nacl) 1,000 mL 1,000 mL, Intravenous, 100 mL/hr PRN: (3) acetaminophen 325 mg Tablet 650 mg 2 tab(s), Oral, q6hr dextrose 50% Solution Disp syringe 50 mL 12.5 gram(s) 25 mL, IV Push, AsDirected melatonin 3 mg tablet 3 mg 1 tab(s), Oral, qHS Lab Results 02/20 12:02 WBC: 9.4 Hgb: 14.0 Hct: 41.1 Platelet: 223 Neutrophil %: 86.6 H Glucose Level: 165 H Sodium Level: 140 Potassium Level: 3.6 BUN: 10.0 Creatinine Lvl (s): 0.57 EKG EKG (ED) - Completed -- 02/20/23 11:59:00 EDT, 02/20/23 11:59:00 EDT Assessment/Plan 1. Multiple falls 2. E.Coli UTI 3. Asthenia 4. Gastroparesis 5. Bilateral hip pain 6. Unintentional weight loss 7. CHELSIE (obstructive sleep apnea) 8. Hypothyroidism 9. CAD (coronary artery disease) Multiple falls/ Asthenia - Neurology involved. Appreciate input. Discussed with Dr. Barney - Physical therapy and occupational therapy consulted. Appreciate input. -MRI of the brain pending. - MRI of the C spine E.Coli UTI- Urine culture sensitives pending. Will follow. Continue ceftriaxone. Newly diagnosed CHELSIE, Cpap ordered - Will check venous PH. Hypothyroidism - TSH/T3/T4- reviewed. CAD- continue asa/statin -heart cath completed 02/05/23 Gastroparesis- patient follows with Dr. Rea. Recent EGD. Patient recently started on Reglan. Plan of care discussed in depth with patient and at bedside. Patient verbalizes understanding and is agreeable plan of care. Shared/split visit with my collaborating physician Dr. Chano Sams. This dictation was performed using voice recognition software and may include grammatical and/or spelling errors Orders: metoclopramide, Start: 02/21/23 14:09:00 EDT, Dose = 10 mg, = 1 tab(s), Oral, qDay, 02/21/23 14:09:00 EDT Consult to Occupational Therapy Consult to Physical Therapy pH (venous) Digitally Signed by RADHA ADRIAN on 02/21/2023 02:16 PM [facility] 02-20-2023 Note ORIGINAL EXAMINATION: CT OF THE HEAD WITHOUT FORLODNN79/13/2023 6:[address] HEAD/BRAIN WITHOUT CONTRAST EXAM DESCRIPTION: TECHNIQUE: CT of the head was performed without the administration of intravenous contrast. Automated exposure control, iterative reconstruction, and/or weight based adjustment of the mA/kV was utilized to reduce the radiation dose to as low as reasonably achievable. COMPARISON: CT head, February 04, 2023 HISTORY: ORDERING SYSTEM PROVIDED HISTORY: Reason for Exam: INCREASED WEAKNESS, MULTIPLE FALLS, AMS AMS FINDINGS: The size, density, and morphology of the brain and CSF containing spaces appears normal. There is no evidence of mass, midline shift, hemorrhage, or infract. The ventricles, cortical sulci, and subarachnoid cisterns appear unremarkable. There are no extra-axial fluid collections. No regions of pathologic attenuation are evident. Partial opacification ethmoid sinuses. Regions of the orbits and remaining paranasal sinuses included within the field of view are unremarkable. There is no displaced fracture or osseous neoplasm. The extracalvarial soft tissues appear unremarkable. IMPRESSION: No acute intracranial pathology. COMMENT: Changes resultant from ischemia (even significant ischemia) may often be inapparent on CT exam, particularly if imaged early. Additionally, early changes due to neoplastic or inflammatory processes can be subtle to the extent that they are not prospectively noted. Therefore, if symptoms persist, or clinical suspicion for pathology remains, further evaluation may be obtained with MRI. Interpreted by: Panfilo Banda MD Preliminary Report By: Panfilo Banda MD Electronically signed By Panfilo Banda MD Dictated Date: 02/20/2023 8:20:05 PM Prelim Date: 02/20/2023 8:20:53 PM Sign Date: 02/20/2023 8:20:53 PM Ordering Provider: [facility] 02-20-2023 History and physical note Date of Service February 20, 2023 Chief Complaint pt states pt has had increased weakness for months states today she fell twice denies any loc or hitting her head History of Present Illness A 72 years old female with past medical history significant for coronary artery disease, hypothyroidism, GERD, recently diagnosed with sleep apnea with CPAP ordered presented to ER on February 20 with chief concern of fatigue, weakness, somnolent going on for at least the past couple of months. Patient also had fallen at least twice today. Patient was somnolent but arousable to verbal stimulation, seems to be oriented but she was also taking her time answering the questions, endorse generalized weakness and fatigue. Also endorsed some difficulty swallowing for the past couple of months (not sure whether oropharyngeal or esophageal) Vitally stable on my evaluation, labs on admission showed UA showing positive nitrite and bacteriuria. TSH was low at 0.[address] head without contrast pending, ABG pending. Chest x-ray on admission did not show any acute radiographic findings. EKG on admission showed sinus rhythm with right bundle branch block/left anterior fascicular block. Review of Systems Review of systems are negative except as mentioned in HPI Physical Exam Vitals and Measurements T: 36.4 C (Oral) HR: 82(Monitored) RR: 20 BP: 153/71 SpO2: 94% WT: 68 kg Weight Dosing Weight: 68 kg (02/20/23) General Appearance: Patient somnolent but arousable on verbal stimulation, follow commands, seems to be oriented but still has some confusion Head: Atraumatic and normocephalic EENT: EOMI, PERRLA, no oropharyngeal erythema, no tonsillar exudates, no conjunctival injection. sclera anicteric. Neck: No thyromegaly, no cervical lymphadenopathy, trachea midline Cardiac: S1 and S2 normal. RRR. No murmurs, rubs, or gallops. No JVD. No hepatojugular reflex. Lungs: Good air entry bilaterally. No increased work for breathing. No wheezes, rhonchi, or rales. Abdomen: Soft, nontender, nondistended. Normoactive bowel sounds. No rebound or guarding. Negative Hastings's sign. No hepatosplenomegaly. Musculoskeletal: Full range of motion upper and lower extremities. No CVA tenderness. Extremities: No lower extremity pitting edema. 2+ radial and pedal pulses bilaterally. Neurological: Did have some resting tremors, power seems to be 4 out of 5 in all 4 extremities Skin: No abrasions, scars, or hematomas on visible skin. No cyanosis. No purulent discharge. Psychiatric: Drowsy but arousable to verbal stimulation, follow commands, seems to be oriented. Lab Results 02/21 12: WBC: 9.4 Hgb: 14.0 Hct: 41.1 Platelet: 223 Neutrophil %: 86.6 H Glucose Level: 165 H Sodium Level: 140 Potassium Level: 3.6 BUN: 10.0 Creatinine Lvl (s): 0.57 WBC: 9.4 10^3/mcL (02/20/23 12:02:00) RBC: 4.74 10^6/mcL (02/20/23 12:02:00) Hgb: 14 G/dL (02/20/23 12:02:00) Hct: 41.1 % (02/20/23 12:02:00) MCV: 86.8 fL (02/20/23 12:02:00) MCH: 29.5 pg (02/20/23 12:02:00) MCHC: 34 G/dL (02/20/23 12:02:00) RDW: 13.6 % (02/20/23 12:02:00) Platelet: 223 10^3/mcL (02/20/23:02:00) MPV: 8 fL (02/20/23 12:02:00) Monocyte Distribution Width: 21.28 High (02/20/23 12:02:00) Neutrophil %: 86.6 % High (02/20/23 12:02:00) Lymphocyte %: 4.9 % Low (02/20/23 12:02:00) Monocyte %: 7.6 % (02/20/23 12:02:00) Eosinophil %: 0.3 % (02/20/23 12:02:00) Basophil %: 0.6 % (02/20/23 12:02:00) Neutrophil, Absolute: 8.2 10^3/mcL High (02/20/23 12:02:00) Lymphocyte, Absolute: 0.5 10^3/mcL Low (02/20/23 12:02:00) Monocyte, Absolute: 0.7 10^3/mcL (02/20/23 12:02:00) Eosinophil, Absolute: 0 10^3/mcL (02/20/23 12:02:00) Basophil, Absolute: 0.1 10^3/mcL (02/20/23 12:02:00) Protime: 11.5 seconds (02/05/23 07:33:00) PT International Ratio: 1 ratio (02/05/23 07:33:00) UA Specimen Type: Clean Catch (02/20/23 14:52:00) UA Color: Yellow (02/20/23 14:52:00) UA Appear: Clear (02/20/23 14:52:00) UA Spec Grav: 1.025 (02/20/23 14:52:00) UA Glucose: Negative. (02/20/23 14:52:00) UA Bili: Negative. (02/20/23 14:52:00) UA Ketones: >=160 Abnormal (02/20/23 14:52:00) UA Blood: Negative. (02/20/23 14:52:00) UA pH: 6.0 (02/20/23 14:52:00) UA Protein: Trace (02/20/23 14:52:00) UA Urobilinogen: 1.0 (02/20/23 14:52:00) UA Nitrite: Positive.1 Abnormal (02/20/23 14:52:00) UA Leuk Est: Trace (02/20/23 14:52:00) UA RBC: 0-2 (02/20/23 14:52:00) UA WBC: 0-2 (02/20/23 14:52:00) UA Squam Epithelial: 0-2 (02/20/23 14:52:00) UA Mucous: 1+ (02/20/23 14:52:00) UA Bacteria: 4+ Abnormal (02/20/23 14:52:00) Glucose Level: 165 mg/dL High (02/20/23 12:02:00) Sodium Level: 140 mEq/L (02/20/23 12:02:00) Potassium Level: 3.6 mEq/L (02/20/23 12:02:00) Chloride: 105 mEq/L (02/20/23 12:02:00) CO2: 25 mEq/L (02/20/23 12:02:00) Electrolyte Balance: 10 mEq/L (02/20/23 12:02:00) BUN: 10 mg/dL (02/20/23 12:02:00) Creatinine Lvl (s): 0.57 mg/dL (02/20/23 12:02:00) BUN/Creatinine Ratio: 17.5 ratio (02/20/23:02:00) Calcium Lvl: 9.2 mg/dL (02/20/23 12:02:00) Magnesium Lvl: 2 mg/dL (02/20/23 12:02:00) Total Protein: 7.1 G/dL (02/20/23 12:02:00) Albumin Level: 4.1 G/dL (02/20/23 12:02:00) Globulin: 3 G/dL (02/20/23 12:02:00) A/G Ratio: 1.4 ratio (02/20/23 12:02:00) Bili Total: 0.8 mg/dL (02/20/23 12:02:00) Alk Phos: 60 U/L (02/20/23 12:02:00) AST/SGOT: 19 U/L (02/20/23 12:02:00) ALT/SGPT: 13 U/L (02/20/23 12:02:00) GFR Non-: >60 (02/20/23 12:02:00) GFR : >60 (02/20/23 12:02:00) Troponin I High Sensitivity: 4.51 ng/L (02/20/23 12:02:00) TSH: 0.075 mIU/mL Low (02/20/23 12:02:00) Imaging Results and Diagnostics XR Chest 1 View Result Date: February 20, 2023 Verified By: PANFILO HUITRON DO CLINICAL STATEMENT: IMPRESSION: No acute radiographic findings. EKG EC02/20/23: SINUS RHYTHM RBBB AND LAFB Compared to ECG at 02/05/2023 07:38:02 Electronic Signature: NEIL NGUYEN MD 02/20/2023 15:47:30 Assessment/Plan Assessment: Delirium Falls Weakness Hypothyroidism Possible UTI Coronary artery disease GERD Obstructive sleep apnea Plan: Patient presented with weakness, fatigue and increased somnolence for the past couple of months now. She is hypothyroid is on levothyroxine 100 mcg daily although TSH was low on admission, she is behaving more like hypothyroid state. Free T4 and free T3 ordered, also check vitamin B12 level. Resume home medication of levothyroxine 100 mcg daily. Also showed increased somnolence since, patient was recently diagnosed with sleep apnea, ordered CPAP while she is asleep. CT head ordered, ABG ordered. We will also covering for possible UTI with IV Rocephin 1 g daily, blood and urine cultures have been ordered She did have some resting tremors of upper extremities on my evaluation, feel weak and fatigued all over, did endorse some swallowing difficulty. Could be neuromuscular process, ordered acetylcholine receptor antibodies, neurology has been consulted. Will appreciate neurology input whether additional tests are needed and like MRI brain and MRI cervical spine. PT/OT consulted Continue aspirin and statin for coronary artery disease Continue pantoprazole for GERD CPAP while she is asleep for sleep apnea Note was written using [employer] commercial production editor software. Some of the meaning of the words and sentences might have changed during commercial production editor, if there was ever some confusion about the meaning of some sentences, please do not hesitate to contact me. Problem List/Past Medical History Ongoing Bilateral hip pain Chest pain Chronic dyspnea Daytime somnolence Dyspnea on exertion Eustachian tube dysfunction Fatigue General weakness GERD (gastroesophageal reflux disease) Hyperlipidemia Hypothyroid Joint pain Leg pain Medicare annual wellness visit, subsequent Memory loss Obstructive sleep apnea Osteopenia Overweight (BMI 25.0-29.9) Postmenopausal Screening for breast cancer Sleep apnea, obstructive Snoring Thrush Type 2 diabetes mellitus without complication, with no history of insulin use Vertigo Historical Cystocele with prolapse Elevated fasting glucose Laceration of external ear Type 2 diabetes mellitus Viral URI Procedure/Surgical History Cardiac catheterization: 05/27/22 Echocardiogram: 05/24/22 Pelvic Prolapse Repair: 03/21/19 Abdominal hysterectomy: 2006 Aspiration of ectopic from cornu of fallopian tube: 1976 Gastroparesis Lumpectomy Medications Home Medications (9) Active aspirin 81 mg oral tablet, chewable 81 mg = 1 tab(s), Chewed, qDay Caltrate 600 + D oral tablet 1 tab(s), Oral, BID Centrum Silver oral tablet 1 tab(s), Oral, qDay Lasix 20 mg oral tablet 20 mg = 1 tab(s), Oral, Thu/Thu/Thu metoclopramide 10 mg oral tablet 10 mg = 1 tab(s), Oral, qDay pantoprazole 40 mg oral enteric coated tablet 40 mg = 1 tab(s), Oral, qDay rosuvastatin 10 mg oral tablet 10 mg = 1 tab(s), Oral, qDay Synthroid 100 mcg (0.1 mg) oral tablet 100 mcg = 1 tab(s), Oral, qDay Toprol-XL 25 mg oral tablet, extended release 25 mg = 1 tab(s), Oral, qDay Allergies Qvar (cough) metFORMIN (diarrhea, nausea) Social History Smoking Status - 02/01/2018 Never smoker Alcohol - Denies Alcohol Use, 01/11/2017 Use: Never., 01/07/2019 Employment/School Status: Retired., 01/07/2019 Exercise Home/Environment None Domestic Concerns:. Living situation: Home/Independent., 01/07/2019 Nutrition/Health Type of diet: Regular. Appetite Good. Eating Difficulties None. Caffeine intake amount: none., 07/05/2019 Sexual Self described orientation: Straight or heterosexual. Gender Identity: Identifies as female., 02/05/2023 Substance Abuse - Denies Substance Abuse, 01/11/2017 Use: Never., 01/07/2019 Tobacco Nicotine Use: Never (less than 100 in lifetime). Exposure to Tobacco Smoke Lives in non-smoking home., 07/05/2019 Family History Arthritis: Mother. Breast cancer: Sister. Hypothyroidism: Father. Malignant neoplasm: Father. Parkinson's disease: Father. Stroke: Mother and Sister. Immunizations SARS-CoV-2 (COVID-19) Ad26 vaccine: 0 unknown unit (03/11/21) tetanus/diphth/pertuss (Tdap) adult/adol: 0.5 mL (10/08/16) tetanus/diphth/pertuss (Tdap) adult/adol: 0 unknown unit (04/12/12) zoster vaccine live: 0 unknown unit (05/31/15) Code Status Code Status - Ordered -- 02/20/23 16:37:00 EDT, Full Code, Constant Order Digitally Signed by BOBBY JIMENEZ MD on 02/20/2023 05:22 PM [facility] Assessment: Delirium Falls Weakness Hypothyroidism Possible UTI Coronary artery disease GERD Obstructive sleep apnea Plan: Patient presented with weakness, fatigue and increased somnolence for the past couple of months now. She is hypothyroid is on levothyroxine 100 mcg daily although TSH was low on admission, she is behaving more like hypothyroid state. Free T4 and free T3 ordered, also check vitamin B12 level. Resume home medication of levothyroxine 100 mcg daily. Also showed increased somnolence since, patient was recently diagnosed with sleep apnea, ordered CPAP while she is asleep. CT head ordered, ABG ordered. We will also covering for possible UTI with IV Rocephin 1 g daily, blood and urine cultures have been ordered She did have some resting tremors of upper extremities on my evaluation, feel weak and fatigued all over, did endorse some swallowing difficulty. Could be neuromuscular process, ordered acetylcholine receptor antibodies, neurology has been consulted. Will appreciate neurology input whether additional tests are needed and like MRI brain and MRI cervical spine. PT/OT consulted Continue aspirin and statin for coronary artery disease Continue pantoprazole for GERD CPAP while she is asleep for sleep apnea Note was written using Qwilt commercial production editor software. Some of the meaning of the words and sentences might have changed during commercial production editor, if there was ever some confusion about the meaning of some sentences, please do not hesitate to contact me. Future Appointments Appointment Date:03/05/2023 02:00:00 PM Scheduled Provider:RAYMUNDO ROBLES Location:[facility] Appointment Type:CV OV Appointment Date:05/15/2023 10:30:00 AM Scheduled Provider: Location:[facility] Appointment Type:MA Mammogram Screening Bilateral w/ Aj Appointment Date:05/15/2023 11:00:00 AM Scheduled Provider: Location:[facility] Appointment Type:BD Bone Density DEXA Axial Skeleton Appointment Date:06/10/2023 08:00:00 AM Scheduled Provider:STU RIDLEY [facility] Appointment Type:PC OV Diagnostic Tests Pending * Acetylcholine Receptor Modulating Antibody 02/20/23 * Acetylcholine Receptor Binding Antibody 02/20/23 * Acetylcholine Receptor Blocking Antibody 02/21/23 * Voltage Gated Calcium Channel P/Q-Type Ab 02/21/23 * Vitamin B1, Plasma 02/22/23 * Vitamin B6 Level 02/21/23 * Heavy Metal Screen 02/22/23 * Rapid Plasma Reagin Test 02/21/23 * JEANNA (serum) 02/21/23 * Copper Level 02/22/23 * Cryoglobulin 02/22/23 * [facility] Lab Send out (Blood Specimens) 02/22/23 Future Scheduled Tests Laboratory* Thyroid Stimulating Hormone 02/16/23 * Free T4 02/16/23 * Albumin/Creatinine Ratio, Random Urine 12/25/22 Radiology* MA Mammo Screening Bilateral w/ Aj 05/15/23 * BD Bone Density DEXA Axial Skeleton 05/15/23 [facility] 10-13-2023 Note ORIGINAL EXAMINATION: ONE XRAY VIEW OF THE CHEST02/20/2023 12:50 pm COMPARISON: September 26, 2021 HISTORY: ORDERING SYSTEM PROVIDED HISTORY: Reason for Exam: chest pain FINDINGS: Cardiac silhouette is stable. Pericardial fat and left basilar atelectatic change noted. No pleural effusion, pneumothorax, vascular congestion, or focal consolidation. No acute osseous abnormality. IMPRESSION: No acute radiographic findings. Interpreted by: Panfilo Huitron DO Preliminary Report By: Panfilo Huitron DO Electronically signed By Panfilo Huitron DO Dictated Date: 02/20/2023 1:02:57 PM Prelim Date: 02/20/2023 1:03:57 PM Sign Date: 02/20/2023 1:03:57 PM Ordering Provider: [facility]10-13-2023 NoteSINUS RHYTHM RBBB AND LAFB Compared to ECG at 02/05/2023 07:38:02 Electronic Signature: NEIL NGUYEN MD 02/20/2023 15:47:30[facility] 09-28-2023 Discharge summary Hospital Course 72 yo female who underwent OP LHC due chest pain with recent cath noting borderline LAD lesion. Patient underwent FFR of LAD lesion which was within normal limits. Therefore, no indication for PCI. Patient tolerated procedure well without complications. No changes to medications. She will f/u with cardiology as OP. Allergies Qvar (cough) metFORMIN (diarrhea, nausea) Consults No qualifying data available. Physical Exam Vitals and Measurements T: 36.2 C (Temporal Artery) HR: 71 RR: 18 BP: 113/77 SpO2: 98% HT: 162.6 cm WT: 69.2 kg BMI: 26.17 Weight Dosing Weight: 69.2 kg (02/05/23) Code Status No qualifying data available. Medications Unchanged aspirin (aspirin 81 mg oral tablet, chewable)1 tab(s) Chewed once a day for 30 Days. Refills: 3. calcium carbonate (Caltrate)2 tabs mg by mouth once a day. furosemide (Lasix 20 mg oral tablet)1 tab(s) by mouth Thursday / Thursday / Thursday for 90 Days. Refills: 2. levothyroxine (Synthroid 100 mcg (0.1 mg) oral tablet)1 tab(s) by mouth once a day for 90 Days. Refills: 3. metoclopramide (metoclopramide 10 mg oral tablet) metoprolol (Toprol-XL 25 mg oral tablet, extended release)1 tab(s) by mouth once a day for 90 Days.Do not crush or chew (controlled release). Refills: 2. multivitamin with minerals (Centrum Silver oral tablet)1 tab(s) by mouth once a day. pantoprazole (pantoprazole 40 mg oral enteric coated tablet)1 tab(s) by mouth once a day. Refills: 3. rosuvastatin (rosuvastatin 10 mg oral tablet)1 tab(s) by mouth once a day. Refills: 3. Follow Up Follow Up with TAYLOR COOK MD When 03/05/2023 02:00 PM EDT Why: THIS APPOINTMENT WILL BE WITH KADI ROBLES CNP Where: [address] [address] [facility] [place] [address]- [phone] Follow Up Appointments No qualifying data available. Follow Up Labs/Studies Discharge Labs No Follow-up Labs Discharge Studies No Follow-up Studies Discharge Diet Discharge Diet - Ordered -- No changes were made to your diet during your hospital stay. Please resume your pre hospitalization diet on discharge., 02/05/23 10:02:00 EDT Discharge Activity Discharge Activity - Ordered -- Lifting Restricted less than 5 pounds, no heavy lifting for 5 days followed by return to normal activities, 02/05/23 10:02:00 EDT Digitally Signed by KHADIJAH BRIAN MD on 02/05/2023 10:04 AM [id number] Summary of episode note Discharge Instructions Thank you for allowing [facility] to assist you with your healthcare needs. The following is importantdischarge information regarding your hospital visit. Your Care Team STU RIDLEY What to do next Scheduled [facility]ointments [facility] 07[facility]30 AM EDT STU RIDLEY [facility] 03/05/2023 02:00 PM EDT RAYMUNDO ROBLES [facility] Mammogram Screening Bilateral w/ Aj 05/15/2023 10:30 AM [facility] [phone] BD Bone Density DEXA Axial Skeleton 05/15/2023 11:00 AM [facility]iology [phone] Follow Up Appointments Follow Up with TAYLOR COOK MD When 03/05/2023 02:00 PM EDT Why: THIS APPOINTMENT WILL BE WITH KADI ROBLES CNP Where: [address] [facility] [address] [facility] [place] [address]- [phone] The Following Activity and Diet Have Been Ordered for You Discharge Activity - Ordered -- Lifting Restricted less than 5 pounds, no heavy lifting for 5 days followed by return to normal activities, 02/05/23 10:02:00 EDT Discharge Diet - Ordered -- No changes were made to your diet during your hospital stay. Please resume your pre hospitalization diet on discharge., 02/05/23 10:02:00 EDT Allergies Qvar (cough) metFORMIN (diarrhea, nausea) Medications Please ask your primary doctor or pharmacist before taking any other medication not listed, including over the counter drugs, herbal medications, vitamins and or supplements as they may interact withyour home medications. What How Much When Instructions Last Dose Unchanged aspirin (aspirin 81 mg oral tablet, chewable) 1 tab(s) Chewed Once a day Duration: 30 Days Unchanged calcium carbonate (Caltrate) 2 tabs mg by mouth Once a day Unchanged furosemide (Lasix 20 mg oral tablet) 1 tab(s) by mouth Thursday / Thursday / Thursday Duration: 90 Days Unchanged levothyroxine (Synthroid 100 mcg (0.1 mg) oral tablet) 1 tab(s) by mouth Once a day Duration: 90 Days Unchanged metoclopramide (metoclopramide 10 mg oral tablet) Unchanged metoprolol (Toprol-XL 25 mg oral tablet, extended release) 1 tab(s) by mouth Once a day Duration: 90 Days Do not crush or chew (controlled release) Unchanged multivitamin with minerals (Centrum Silver oral tablet) 1 tab(s) by mouth Once a day Unchanged pantoprazole (pantoprazole 40 mg oral enteric coated tablet) 1 tab(s) by mouth Once a day Unchanged rosuvastatin (rosuvastatin 10 mg oral tablet) 1 tab(s) by mouth Once a day Please take this list to your next doctor s visit. Bring all medications you take, including over the counter medications, herbals and other supplements with you to your doctor s visit. Patients and families are reminded to discard old lists and to update any records with all medication providers or retail pharmacies. Education Materials HEART CATHETERIZATION/PCI (radial) Discharge Instructions DIET Drink plenty of fluids for the next 48 hours to help your kidneys flush the heart cath dye out of your system ACTIVITY For the next 48 hours: Do not deep bend the wrist Do not lift, push, or pull anything over 5 pounds Do not use the hand/arm to support your weight when rising from a chair or bed Do not drive For the next 7 days: Do not submerse your procedure site in water Do not swim, wash dishes, or take tub baths You may write, eat, type, and shower WOUND CARE Keep a dressing on for 24 hours, wash, dry, and place Band-Aid. Keep a Band-Aid on your procedure site for the next 3-4 days Change the Band-Aid daily or if it gets wet/soiled AFTER YOU GO HOME, CALL YOUR DOCTOR FOR: Any increase in bruising or tenderness from the procedure site Any redness, pus, or other signs of infection at the site A temperature above 100.5 Severe pain at the site DIAL 911 AND RETURN TO THE HOSPITAL FOR: Any bleeding from the procedure site. The site may be bruised or tender, but it should not be bleeding at any time. If your site begins to bleed, hold firm pressure on it and dial 911 to return to the hospital Any increase in swelling at the procedure site. An increase in swelling could mean the area is bleeding under the skin. Hold firm pressure to the site and dial 911 to return to the hospital Document Released: 04/27/2006 Document Revised: 04/13/2013 Document Reviewed: 04/28/2014 ExitCare Patient Information 2015 [employer]. This information is not intended to replace advicegiven to you by your health care provider. Make sure you discuss any questions you have with your health care provider. Moderate Conscious Sedation, Adult, Care After These instructions provide you with information about caring for yourself after your procedure. Your health care provider may also give you more specific instructions. Your treatment has been plannedaccording to current medical practices, but problems sometimes occur. Call your health care provider if you have any problems or questions after your procedure. What can I expect after the procedure? After your procedure, it is common: To feel sleepy for several hours. To feel clumsy and have poor balance for several hours. To have poor judgment for several hours. To vomit if you eat too soon. Follow these instructions at home: For at least 24 hours after the procedure: Do not: ? Participate in activities where you could fall or become injured. ? Drive. ? Use heavy machinery. ? Drink alcohol. ? Take sleeping pills or medicines that cause drowsiness. ? Make important decisions or sign legal documents. ? Take care of children on your own. Rest. Eating and drinking Follow the diet recommended by your health care provider. If you vomit: ? Drink water, juice, or soup when you can drink without vomiting. ? Make sure you have little or no nausea before eating solid foods. General instructions Have a responsible adult stay with you until you are awake and alert. Take zxtj-pja-hkxtnmm and prescription medicines only as told by your health care provider. If you smoke, do not smoke without supervision. Keep all follow-up visits as told by your health care provider. This is important. Contact a health care provider if: You keep feeling nauseous or you keep vomiting. You feel light-headed. You develop a rash. You have a fever. Get help right away if: You have trouble breathing. This information is not intended to replace advice given to you by your health care provider. Make sure you discuss any questions you have with your health care provider. Document Released: 02/15/2014 Document Revised: 04/09/2018 Document Reviewed: 08/16/2016 [employer] Patient Education 2020 [employer] Additional Information VACCINATE! IT SAVES LIVES! Members of the community who have not yet received the COVID-19 vaccine and would like to receive it can visit one of [facility] vaccine clinics. There are many vaccine clinic locations within the [facility]. For locations and available times, please visit [email or web address].[email or web address] It is important to note that some COVID mobile vaccine clinics are held outdoors and may be canceled in rainy or stormy conditions. To learn more about pediatric vaccinations (ages 5-11), we invite you to visit the [facility] webpage. [email or web address].[email or web address]/pages/[email or web address] [email or web address].htmlTo learn more about the COVID-19 vaccine, we invite you to visit the CDC website for a list of frequently asked questions.https://www.cdc.gov/coronavirus/2019-ncov/vaccines/faq.html [facility] Patient Portal Access Instructions: Stay connected with your healthcare team and access your personal medical information anytime with the [facility] Patient Portal. Please follow the directions below to create your [employer] account: 1.Access the email account you provided upon registration to the hospital/physician office.2.Look for an invitation email from [facility].3.Open the email and access the invitation link: AcceptInvitation to [facility].4.Fill in the required doss to create your account. To access your account, visit [email or web address]. Click the blue button labeled Access Patient Portal and then log in with the username and password that you created in the steps above. You will be able to view your test results, lab results, a summary of your visits, upcoming appointments and more. There is also a convenient messaging option where you can send secure messages to your p rovider. In addition, you will have the ability to download any documents or summaries to your computer and/or send the information securely to a physician. Remember that your healthcare information is confidential, so carefully consider who you will allowto register on the [facility] Patient Portal for access to your information. You can also access the [facility] Patient Portal on the [facility] paz. Simply click on Patient Portal and then log into your account. If you would like to receive a full copy of your medical records, please contact the [facility] Medical Records Department by calling [phone], Thursday through Thursday between 8 a.m. and 4:30 p.m. HOW TO SAFELY DISPOSE OF PRESCRIPTION MEDICATIONS Please use one of the following methods to safely dispose of your unused medications. 1.Use a drug disposal kit: the drug disposal pouch allows you to safely discard your old and unuseddrugs. Ask your nurse to give you one when you are discharged.2.Visit a local take-back location: Many local pharmacies and police departments have programs that collect old and unwanted prescriptiondrugs. Call your local pharmacy or go to http://bidu.com.br.640 Labs/6M0Ku0g to find one close to you.3.Make use of household items: Use cat litter or old coffee grounds to dispose medications if other options arenot available. Mix your drugs with these household products, seal them in an airtight container andthrow it into the garbage. Call [facility]: [phone] to be sure your drugs can be disposed of in this way. Some medicines may require a different approach.4.Never flush your medications down the toilet. IF YOU HAVE BEEN PRESCRIBED AN OPIOID FOR PAIN If you have been prescribed an opioid (such as hydrocodone, oxycodone or morphine), it is critical to understand the possible side effects and risks of opioid pain medications. Even when taken as directed, opioids can have several side effects including: Tolerance, meaning you might need to take more of a medication for the same pain relief. Nausea, vomiting and/or constipation. Sleepiness, dizziness, dry mouth, confusion, depression or itching. Physical dependence, meaning you have withdrawal symptoms when a medication is stopped, can develop within a few days. KNOW YOUR RESPONSIBILITIES It is important to know exactly how much and how often to take the opioid pain medications you are prescribed. Never take opioids in higher amounts or more often than prescribed. Do not combine opioids with alcohol or other drugs that cause drowsiness, such as benzodiazepines, also known as benzos, including diazepam and alprazolam, muscle relaxants or sleep aids. Never sell or share prescription opioids. This is illegal. Store opioids in a secure place and out of reach of others (including children, family, friends and visitors). The last page of this document has been signed and retained as a CHART COPY. Signatures Patient Education Materials 3- Heart Cath/PCI radial (02/2018) (CUSTOM) Moderate Conscious Sedation, Adult, Care After Medication Leaflets My discharge plan and instructions have been reviewed and explained to me and ISELVIN LUCINDA M understand my current condition and have read and understand these discharge instructions. I have received a written copy of the plan/instructions. If I have questions, I am aware that I should contact my doctor. Patient/Corporate Scheduler Signature: Date/Time: Relationship to Patient: Witness Name/Signature: Date[facility]Time: [id number] Hospital Discharge instructions Patient Education 02/05/2023 10:22:53 3- Heart Cath/PCI radial (02/2018) (CUSTOM) HEART CATHETERIZATION/PCI (radial) Discharge Instructions DIET Drink plenty of fluids for the next 48 hours to help your kidneys flush the heart cath dye out of your system ACTIVITY For the next 48 hours: Do not deep bend the wrist Do not lift, push, or pull anything over 5 pounds Do not use the hand/arm to support your weight when rising from a chair or bed Do not drive For the next 7 days: Do not submerse your procedure site in water Do not swim, wash dishes, or take tub baths You may write, eat, type, and shower WOUND CARE Keep a dressing on for 24 hours, wash, dry, and place Band-Aid. Keep a Band-Aid on your procedure site for the next 3-4 days Change the Band-Aid daily or if it gets wet/soiled AFTER YOU GO HOME, CALL YOUR DOCTOR FOR: Any increase in bruising or tenderness from the procedure site Any redness, pus, or other signs of infection at the site A temperature above 100.5 Severe pain at the site DIAL 911 AND RETURN TO THE HOSPITAL FOR: Any bleeding from the procedure site. The site may be bruised or tender, but it should not be bleeding at any time. If your site begins to bleed, hold firm pressure on it and dial 911 to return to the hospital Any increase in swelling at the procedure site. An increase in swelling could mean the area is bleeding under the skin. Hold firm pressure to the site and dial 911 to return to the hospital Document Released: 04/27/2006 Document Revised: 04/13/2013 Document Reviewed: 04/28/2014 ExitCare Patient Information 2015 [employer]. This information is not intended to replace advicegiven to you by your health care provider. Make sure you discuss any questions you have with your health care provider. 02/05/2023 10:22:30 Moderate Conscious Sedation, Adult, Care After Moderate Conscious Sedation, Adult, Care After These instructions provide you with information about caring for yourself after your procedure. Your health care provider may also give you more specific instructions. Your treatment has been plannedaccording to current medical practices, but problems sometimes occur. Call your health care provider if you have any problems or questions after your procedure. What can I expect after the procedure? After your procedure, it is common: To feel sleepy for several hours. To feel clumsy and have poor balance for several hours. To have poor judgment for several hours. To vomit if you eat too soon. Follow these instructions at home: For at least 24 hours after the procedure: Do not: ?Participate in activities where you could fall or become injured. ?Drive. ?Use heavy machinery. ?Drink alcohol. ?Take sleeping pills or medicines that cause drowsiness. ?Make important decisions or sign legal documents. ?Take care of children on your own. Rest. Eating and drinking Follow the diet recommended by your health care provider. If you vomit: ?Drink water, juice, or soup when you can drink without vomiting. ?Make sure you have little or no nausea before eating solid foods. General instructions Have a responsible adult stay with you until you are awake and alert. Take kgky-jse-mtpribh and prescription medicines only as told by your health care provider. If you smoke, do not smoke without supervision. Keep all follow-up visits as told by your health care provider. This is important. Contact a health care provider if: You keep feeling nauseous or you keep vomiting. You feel light-headed. You develop a rash. You have a fever. Get help right away if: You have trouble breathing. This information is not intended to replace advice given to you by your health care provider. Make sure you discuss any questions you have with your health care provider. Document Released: 02/15/2014 Document Revised: 04/09/2018 Document Reviewed: 08/16/2016 [employer] Patient Education 2020 [employer]. Follow Up Care 01/26/2023 08:44:06 With:TAYLOR COOK MD Address: [address] [facility] [address] [facility] [address] [facility] [place] [address]- [phone] When:03/05/2023 14:00:00 Comments:THIS APPOINTMENT WILL BE WITH KADI ROBLES CNP [facility] 09-28-2023 Discharge summary Hospital Course 72 yo female who underwent OP LHC due chest pain with recent cath noting borderline LAD lesion. Patient underwent FFR of LAD lesion which was within normal limits. Therefore, no indication for PCI. Patient tolerated procedure well without complications. No changes to medications. She will f/u with cardiology as OP. Allergies Qvar (cough) metFORMIN (diarrhea, nausea) Consults No qualifying data available. Physical Exam Vitals and Measurements T: 36.2 C (Temporal Artery) HR: 71 RR: 18 BP: 113/77 SpO2: 98% HT: 162.6 cm WT: 69.2 kg BMI: 26.17 Weight Dosing Weight: 69.2 kg (02/05/23) Code Status No qualifying data available. Medications Unchanged aspirin (aspirin 81 mg oral tablet, chewable)1 tab(s) Chewed once a day for 30 Days. Refills: 3. calcium carbonate (Caltrate)2 tabs mg by mouth once a day. furosemide (Lasix 20 mg oral tablet)1 tab(s) by mouth Thursday / Thursday / Thursday for 90 Days. Refills: 2. levothyroxine (Synthroid 100 mcg (0.1 mg) oral tablet)1 tab(s) by mouth once a day for 90 Days. Refills: 3. metoclopramide (metoclopramide 10 mg oral tablet) metoprolol (Toprol-XL 25 mg oral tablet, extended release)1 tab(s) by mouth once a day for 90 Days.Do not crush or chew (controlled release). Refills: 2. multivitamin with minerals (Centrum Silver oral tablet)1 tab(s) by mouth once a day. pantoprazole (pantoprazole 40 mg oral enteric coated tablet)1 tab(s) by mouth once a day. Refills: 3. rosuvastatin (rosuvastatin 10 mg oral tablet)1 tab(s) by mouth once a day. Refills: 3. Follow Up Follow Up with TAYLOR COOK MD When 03/05/2023 02:00 PM EDT Why: THIS APPOINTMENT WILL BE WITH KADI ROBLES CNP Where: [address] [facility] [facility] [address] [facility] [place] [address]- [phone] Follow Up Appointments No qualifying data available. Follow Up Labs/Studies Discharge Labs No Follow-up Labs Discharge Studies No Follow-up Studies Discharge Diet Discharge Diet - Ordered -- No changes were made to your diet during your hospital stay. Please resume your pre hospitalization diet on discharge., 02/05/23 10:02:00 EDT Discharge Activity Discharge Activity - Ordered -- Lifting Restricted less than 5 pounds, no heavy lifting for 5 days followed by return to normal activities, 02/05/23 10:02:00 EDT Digitally Signed by KHADIJAH BRIAN MD on 02/05/2023 10:04 AM [id number] Note* Exam Date Time Procedure Performing Provider Status 02/05/23 9:21 AM Cardiac Catheterization -CV Auth (Verified) [facility] 07-20-2023 Note ORIGINAL EXAMINATION: GASTRIC EMPTYING STUDY11/27/2022 3:09 pm TECHNIQUE: The patient received an oral radiolabeled solid-phase meal utilizing 2.0 mCi of Tc-99m sulfur colloid in cooked egg. Sequential anterior and posterior images of the abdomen were then acquired over the next four hours. Computer quantification of gastric emptying (using geometric mean activity) was performed. COMPARISON: Ultrasound abdomen 11/07/2022 HISTORY: ORDERING SYSTEM PROVIDED HISTORY: Reason for Exam: NAUSA VOMITING FINDINGS: Sequential static images demonstrates radiotracer within the gastric lumen, progressively emptying into small bowel. Computer quantification demonstrates gastric retention as follows: 87 % at 0.5 hr (normal min 70%) 76 % at 1 hr (normal 30%-90%) 73 % at 2 hr (normal max 60%) 57 % at 3 hr (normal max 30%) 42 % at 4 hr (normal max 10%) IMPRESSION: Delayed gastric emptying of radiolabeled solid meal, suggestive of gastroparesis. I have personally reviewed the images of this examination and agree with the resident's findings and interpretation. Interpreted by: Kanika Seo Preliminary Report By: Cassandra Bose Electronically signed By Kanika Seo Dictated Date: 11/27/2022 3:11:03 PM Prelim Date: 11/27/2022 3:39:04 PM Sign Date: 11/27/2022 3:39:04 PM Ordering Provider: GHULAM [facility]11-30-2022 SARS-CoV-2 (COVID-19) RNA MARGO+probe Ql (Nph)Negative *NA* (04/09/22 1:58 PM)AO Auto Urine SSEvaluation + Plan note Future Appointments Appointment Date:09/25/2021 01:00:00 PM Scheduled Provider:STU RIDLEY [facility] Appoint[facility] Type: OV Future Scheduled Tests Laboratory* Thyroid Stimulating Hormone 10/23/20 * Thyroid Stimulating Hormone 01/30/21 * Free T4 07/25/20 * Free T4 01/30/21 * Lipid Profile 01/30/21 * Complete Metabolic Panel 01/30/21 [facility] Evaluation + Plan note Future Appointments Appointment Date:09/25/2021 01:00:00 PM Scheduled Provider:STU RIDLEY Location:[facility] Appointment Type:PC OV Future Scheduled Tests Laboratory* Thyroid Stimulating Hormone 10/23/20 * Free T4 07/25/20 [facility] Evaluation + Plan note Future Appointments Appointment Date:03/19/2022 09:00:00 AM Scheduled Provider: Location:[facility] Appointment Type:PC Nurse Lab Appointment Date:03/26/2022 01:30:00 PM Scheduled Provider:STU RIDLEY Location:[facility] Appointment Type:PC OV Future Scheduled Tests Laboratory* Thyroid Stimulating Hormone 03/28/22 * Thyroid Stimulating Hormone 10/23/20 * Free T4 03/28/22 * A1C Hemoglobin 03/28/22 * Lipid Profile 03/28/22 * Vitamin D Level 03/28/22 Radiology* NM Myocardial Spect Rest/Stress 09/25/21 * XR Chest 2 Views (PA & Lateral) 09/25/21 [facility] Evaluation + Plan note Future Appointments Appointment Date:03/19/2022 09:00:00 AM Scheduled Provider: Location:[facility] Appointment Type:PC Nurse Lab Appointment Date:03/26/2022 01:30:00 PM Scheduled Provider:STU RIDLEY Location:[facility] Appointment Type:PC OV Future Scheduled Tests Laboratory* Thyroid Stimulating Hormone 03/28/22 * Thyroid Stimulating Hormone 10/23/20 * Free T4 03/28/22 * A1C Hemoglobin 03/28/22 * Lipid Profile 03/28/22 * Vitamin D Level 03/28/22 Radiology* XR Chest 2 Views (PA & Lateral) 09/25/21 [facility] Evaluation + Plan note Future Appointments Appointment Date:03/26/2022 01:30:00 PM Scheduled Provider:STU RIDLEY Location:[facility] Appointment Type:PC OV Future Scheduled Tests Radiology* XR Chest 2 Views (PA & Lateral) 09/25/21 [facility] Evaluation + Plan note Future Appointments Appointment Date:04/22/2022 11:30:00 AM Scheduled Provider: Location:[facility] Appointment Type:MA Mammogram Screening Bilateral w/ Aj Appointment Date:04/24/2022 10:15:00 AM Scheduled Provider: Location:[facility] Appointment Type:CV TIN CAN FEEDER Appointment Date:09/17/2022 09:00:00 AM Scheduled Provider: Location:[facility] Appointment Type:PC Nurse Lab Appointment Date:09/24/2022 01:00:00 PM Scheduled Provider:STU RIDLEY Location:[facility] Appointment Type:PC OV Future Scheduled Tests Laboratory* Thyroid Stimulating Hormone 09/23/22 * Free T4 09/23/22 * A1C Hemoglobin 09/23/22 * Lipid Profile 09/23/22 * Vitamin D Level 09/23/22 * Complete Metabolic Panel 09/23/22 Radiology* MA Mammo Screening Bilateral w/ Aj 04/22/22 * XR Chest 2 Views (PA & Lateral) 09/25/21 [facility] Evaluation + Plan note Future Appointments Appointment Date:06/06/2022 08:00:00 AM Scheduled Provider: Location:[facility] Appointment Type:CV Procedure - Heart Lab/Hybrid OR Appointment Date:07/09/2022 03:15:00 PM Scheduled Provider: Location:[facility] Appointment Type:CV OV Appointment Date:09/17/2022 09:00:00 AM Scheduled Provider: Location:[facility] Appointment Type:PC Nurse Lab Appointment Date:09/24/2022 01:00:00 PM Scheduled Provider:STU RIDLEY Location:[facility] Appointment Type:PC OV Future Scheduled Tests Laboratory* Basic Metabolic Panel 05/23/22 * Thyroid Stimulating Hormone 09/23/22 * Free T4 09/23/22 * A1C Hemoglobin 09/23/22 * Complete Blood Count 05/23/22 * Lipid Profile 09/23/22 * Vitamin D Level 09/23/22 * Complete Metabolic Panel 09/23/22 Radiology* XR Chest 2 Views (PA & Lateral) 09/25/21 [facility] Evaluation + Plan note Future Appointments Appointment Date:06/06/2022 08:30:00 AM Scheduled Provider: Location:[facility] Appointment Type:CV Procedure - Heart Lab/Hybrid OR Appointment Date:07/09/2022 03:15:00 PM Scheduled Provider: [facility] Appointment Type:CV OV Appointment Date:09/17/2022 09:00:00 AM Scheduled Provider: Location:[facility] Appointment Type:PC Nurse Lab Appointment Date:09/24/2022 01:00:00 PM Scheduled Provider:STU RIDLEY Location:[facility] Appointment Type:PC OV Future Scheduled Tests Laboratory* Thyroid Stimulating Hormone 09/23/22 * Free T4 09/23/22 * A1C Hemoglobin 09/23/22 * Lipid Profile 09/23/22 * Vitamin D Level 09/23/22 * Complete Metabolic Panel 09/23/22 Radiology* XR Chest 2 Views (PA & Lateral) 09/25/21 [facility] Evfunmiation + Plan note Future Appointments Appointment Date:09/17/2022 09:00:00 AM Scheduled Provider: Location:[facility] Appointment Type:PC Nurse Lab Appointment Date:09/24/2022 01:00:00 PM Scheduled Provider:STU RIDLEY Location:[facility] Appointment Type:PC OV Future Scheduled Tests Laboratory* Thyroid Stimulating Hormone 09/23/22 * Free T4 09/23/22 * A1C Hemoglobin 09/23/22 * Lipid Profile 09/23/22 * Vitamin D Level 09/23/22 * Complete Metabolic Panel 09/23/22 Radiology* XR Chest 2 Views (PA & Lateral) 09/25/21 [facility] evaluation + Plan note Future Appointments Appointment Date:09/24/2022 01:00:00 PM Scheduled Provider:STU RIDLEY Location:[facility] Appointment Type:PC OV Appointment Date:10/13/2022 10:00:00 AM Scheduled Provider: Location:[facility] Appointment Type:CV OV Future Scheduled Tests Radiology* XR Chest 2 Views (PA & Lateral) 09/25/21 [facility] [employer]uation + Plan note Future Appointments Appointment Date:01/21/2023 09:00:00 AM Scheduled Provider: Location:[facility] Appointment Type:PC Nurse Lab Appointment Date:01/26/2023 01:30:00 PM Scheduled Provider:STU RIDLEY Location:[facility] Appointment Type:PC Wellness Medicare Future Scheduled Tests Laboratory* A1C Hemoglobin 12/25/22 * Lipid Profile 12/25/22 * Albumin/Creatinine Ratio, Random Urine 12/25/22 * Complete Metabolic Panel 12/25/22 [facility] [employer]uation + Plan note Future Appointments Appointment Date:01/26/2023 01:30:00 PM Scheduled Provider:STU RIDLEY Location:[facility] Appointment Type:PC Wellness Medicare Future Scheduled Tests Laboratory* Albumin/Creatinine Ratio, Random Urine 12/25/22 [facility] [employer]uation + Plan note Future Appointments Appointment Date:02/05/2023 09:00:00 AM Scheduled Provider: Location:[facility] Appointment Type:CV Procedure - Heart Lab/Hybrid OR Appointment Date:02/16/2023 07:30:00 AM Scheduled Provider:STU RIDLEY Location:[facility] Appointment Type:PC OV Appointment Date:03/05/2023 02:00:00 PM Scheduled Provider:RAYMUNDO ROBLES Location:[facility] Appointment Type:CV OV Appointment Date:05/15/2023 10:30:00 AM Scheduled Provider: Location:[facility] Appointment Type:MA Mammogram Screening Bilateral w/ Aj Appointment Date:05/15/2023 11:00:00 AM Scheduled Provider: Location:[facility] Appointment Type:BD Bone Density DEXA Axial Skeleton Future Scheduled Tests Laboratory* Basic Metabolic Panel 02/05/23 * Complete Blood Count 02/05/23 * Albumin/Creatinine Ratio, Random Urine 12/25/22 * Prothrombin Time - Panel 02/05/23 Radiology* MA Mammo Screening Bilateral w/ Aj 05/15/23 * BD Bone Density DEXA Axial Skeleton 05/15/23 [facility] Evaluation + Plan note Future Appointments Appointment Date:02/16/2023 07:30:00 AM Scheduled Provider:STU IRDLEY Location:[facility] Appointment Type:PC OV Appointment Date:03/05/2023 02:00:00 PM Scheduled Provider:RAYMUNDO ROBLES Location:[facility] Appointment Type:CV OV Appointment Date:05/15/2023 10:30:00 AM Scheduled Provider: Location:[facility] Appointment Type:MA Mammogram Screening Bilateral w/ Aj Appointment Date:05/15/2023 11:00:00 AM Scheduled Provider: Location:[facility] Appointment Type:BD Bone Density DEXA Axial Skeleton Future Scheduled Tests Laboratory* Albumin/Creatinine Ratio, Random Urine 12/25/22 Radiology* MA Mammo Screening Bilateral w/ Aj 05/15/23 * BD Bone Density DEXA Axial Skeleton 05/15/23 [facility] Evaluation + Plan note Future Appointments Appointment Date:03/25/2023 02:00:00 PM Scheduled Provider:MARCELINO CHINCHILLA Location:[facility] Appointment Type:PC OV Appointment Date:03/27/2023 10:00:00 AM Scheduled Provider: Location:[facility] Appointment Type:CV OV Appointment Date:05/15/2023 10:30:00 AM Scheduled Provider: Location:[facility] Appointment Type:MA Mammogram Screening Bilateral w/ Aj Appointment Date:05/15/2023 11:00:00 AM Scheduled Provider: Location:[facility] Appointment Type:BD Bone Density DEXA Axial Skeleton Appointment Date:06/10/2023 08:00:00 AM Scheduled Provider:STU RIDLEY Location:[facility] Appointment Type:PC OV Future Scheduled Tests Laboratory* Albumin/Creatinine Ratio, Random Urine 12/25/22 Radiology* MA Mammo Screening Bilateral w/ Aj 05/15/23 * BD Bone Density DEXA Axial Skeleton 05/15/23 [facility] Evaluation + Plan note Future Appointments Appointment Date:06/10/2023 08:00:00 AM Scheduled Provider:STU RIDLEY Location:[facility] Appointment Type:PC OV Appointment Date:07/15/2023 10:30:00 AM Scheduled Provider: Location:[facility] Appointment Type:CV OV Future Scheduled Tests Laboratory* [facility] Panel 06/02/23 * Albumin/Creatinine Ratio, Random Urine 12/25/22 Radiology* MA Mammo Screening Bilateral w/ Aj 05/15/23 * BD Bone Density DEXA Axial Skeleton 05/15/23 [facility] Hospital course Narrative No data available for this section [facility] Hospital Discharge instructions No data available for this section [facility] Progress note No data available for this section [facility] Summary Purpose Family History No Family History Records FoundNo Family History Records Found No data available for this section No data available for this section No data available for this section No data available for this section No data available for this section No data available for this section No Family History Records Found No data available for this section Advance Directives No Advanced Directives Records FoundNo Advanced Directives Records FoundNo Advanced Directives Records Found Additional Source Comments INFORMATION SOURCE (unrecogn ized section and content) DATE CREATED AUTHOR AUTHOR'S ORGANIZ ATION 04/14/2019 [facility] DATE CREATED AUTHOR AUTHOR'S ORGANIZ ATION 06/05/2023 [facility] ([place]) Care Team (unrecognized sect ion and content) Personnel [facility]: [facility] Address: [address] [place] [address]- [place] Name: Jorge Gamez Clerk Li PT Name: Test, P3 Scheduling - Pleating Machine Operator Advanced 4 Personnel Name: [facility] Address: [address] [place] [address]- Name: Jorge Gamez Clerk Li PT Name: Test, P3 Scheduling - Pleating Machine Operator Advanced 4 Care Team Personnel Name: Jorge Gamez Clerk Li PT Position: P3 Scheduling - Pleating Machine Operator Advanced Member Role: Other Name: STU RIDLEY UNIVERSITY ADMINISTRATOR-DIRECTOR WEIGHTS AND MEASURES Position: P4 Advanced Motor Expert Member Role: Primary Care Physician Address: Address: [address] [place] [address]- Name: Test, P3 Scheduling - Pleating Machine Operator Advanced 4 Position: P3 Scheduling - Pleating Machine Operator Advanced Member Role: Other Care Team Related Persons Name: RADHAMES MONTALVO Address: Home [address] [place], [place] [phone] Care Team Personnel Name: Vera Vice President Of Sales Li PT Position: P3 Scheduling - Pleating Machine Operator Advanced Member Role: Other Name: STU RIDLEY UNIVERSITY ADMINISTRATOR-DIRECTOR WEIGHTS AND MEASURES Position: P4 Advanced Motor Expert Member Role: Primary Care Physician Address: Address: [address] [place] [address] Name: Test, P3 Scheduling - Pleating Machine Operator Advanced 4 Position: P3 Scheduling - Pleating Machine Operator Advanced Member Role: Other Care Team Related Persons Name: RADHAMES MONTALVO Address: Home [address] [place] [phone] Care Team Personnel Name: Vera Vice President Of Sales Li PT Position: P3 Scheduling - Pleating Machine Operator Advanced Member Role: Other Name: STU RIDLEY APRN-DIRECTOR WEIGHTS AND MEASURES Position: P4 Advanced Motor Expert Member Role: Primary Care Physician Address: Address: [address] [place] [address] Name: Test, P3 Scheduling - Pleating Machine Operator Advanced 4 Position: P3 Scheduling - Pleating Machine Operator Advanced Member Role: Other Care Team Related Persons Name: RADHAMES MONTALVO Address: Home [address] [place], [place] [phone] Care Team Personnel Name: Vera Vice President Of Sales Li PT Position: P3 Scheduling - Pleating Machine Operator Advanced Member Role: Other Name: STU RIDLEY APRN-DIRECTOR WEIGHTS AND MEASURES Position: P4 Advanced Motor Expert Member Role: Primary Care Physician Address: Address: [address] [place] [address] Name: Test, P3 Scheduling - Pleating Machine Operator Advanced 4 Position: P3 Scheduling - Pleating Machine Operator Advanced Member Role: Other Care Team Related Persons Name: RADHAMES MONTALVO Address: Home [address] [place], [place] [phone] Care Team Personnel Name: Vera Vice President Of Sales Li PT Position: P3 Scheduling - Pleating Machine Operator Advanced Member Role: Other Name: STU RIDLEY APRN-MARI Position: P4 Advanced Motor Expert Member Role: Primary Care Physician Address: Address: [address] [place] [address]- Name: Test, Ricardo Scheduling - Pleating Machine Operator Advanced 4 Position: P3 Scheduling - Pleating Machine Operator Advanced Member Role: Other Care Team Related Persons Name: RADHAMES MONTALVO Address: Home [address] [place], [place] [phone] Care Team Personnel Name: Vera Vice President Of Sales Li PT Position: P3 Scheduling - Pleating Machine Operator Advanced Member Role: Other Name: STU RIDLEY APRN-MARI Position: P4 Advanced Motor Expert Member Role: Primary Care Physician Address: Address: [address] [place] [address]- Name: Test, P3 Scheduling - Pleating Machine Operator Advanced 4 Position: P3 Scheduling - Pleating Machine Operator Advanced Member Role: Other Care Team Related Persons Name: RADHAMES MONTALVO Address: Home [address] [place], [place] [phone] Care Team Personnel Name: Jorge Gamez Clerk Li PT Position: P3 Scheduling - Pleating Machine Operator Advanced Member Role: Other Name: STU RIDLEY APRN-MARI Position: P4 Advanced Motor Expert Member Role: Primary Care Physician Address: Address: [address] [place] [address]- Name: Test, Ricardo Scheduling - Pleating Machine Operator Advanced 4 Position: P3 Scheduling - Pleating Machine Operator Advanced Member Role: Other Name: Loren Guadarrama RN Position: P3 cloth spreader Member Role: cloth spreader Name: NEIL NGUYEN MD Position: ED Physician Member Role: ED Physician Address: Address: [address] [facility] [address] [place] [address]- [place] Name: JUICE OCASIO MD Position: Resident Member Role: Resident Address: Address: [address] [facility] [place] [address]- [place] Name: MARI ANTON PA-C Position: ED Advanced Motor Expert Member Role: Physician Painter Hand Address: Address: [address] [place] [address]- [place] Name: Ezra Schultz [facility] Position: PharmNet: Greens Planter/Tech Member Role: Ink Jet Operator Care Team Related Persons Name: RADHAMES MONTALVO Address: Home [address] [place], [place] [phone] [place] Name: SELVIN SIXTO Care Team Personnel Name: Jorge Gamez Clerk Li PT Position: P3 Scheduling - Pleating Machine Operator Advanced Member Role: Other Name: STU RIDLEY APRN-DIRECTOR WEIGHTS AND MEASURES Position: P4 Advanced Motor Expert Member Role: Primary Care Physician Address: Address: [address] [place] [address]- Name: Test, P3 Scheduling - Pleating Machine Operator Advanced 4 Position: P3 Scheduling - Pleating Machine Operator Advanced Member Role: Other Care Team Related Persons Name: RADHAMES MONTALVO Address: Home [address] [place], [place] [phone] [place] Name: SIXTO MONTALVO Care Team Personnel Name: Jorge Gamez Clerk Li PT Position: P3 Scheduling - Pleating Machine Operator Advanced Member Role: Other Name: STU RIDLEY APRN-DIRECTOR WEIGHTS AND MEASURES Position: P4 Advanced Motor Expert Member Role: Primary Care Physician Address: Address: [address] [place] [address] Name: Test, P3 Scheduling - Pleating Machine Operator Advanced 4 Position: P3 Scheduling - Pleating Machine Operator Advanced Member Role: Other Care Team Related Persons Name: RADHAMES MONTALVO Address: Home [address] [place], [place] [phone] Care Team (unrecognized sect ion and content) Care Team Personnel Name: Jorge Gamez Clerk Li PT Position: P3 Scheduling - Pleating Machine Operator Advanced Member Role: Other Name: STU RIDLEY APRN-DIRECTOR WEIGHTS AND MEASURES Position: P4 Advanced Practice Nurse Member Role: Primary Care Physician Address: Address: [address] [place] [address] Name: Test, P3 Scheduling - Pleating Machine Operator Advanced 4 Position: P3 Scheduling - Pleating Machine Operator Advanced Member Role: Other Care Team Related Persons Name: RADHAMES MONTALVO Address: Home [address] [place], [place] [phone] Care Team Personnel Name: Phelps, Vice President Of Sales Li PT Position: P3 Scheduling - Pleating Machine Operator Advanced Member Role: Other Name: STU RIDLEY APRN-DIRECTOR WEIGHTS AND MEASURES Position: P4 Advanced Practice Nurse Member Role: Primary Care Physician Address: Address: [address] [place] [address]- Name: Test, P3 Scheduling - Pleating Machine Operator Advanced 4 Position: P3 Scheduling - Pleating Machine Operator Advanced Member Role: Other Care Team Related Persons Name: RADHAMES MONTALVO Address: Home [address] [place], [place] [phone] Care Team Personnel Name: Vera Vice President Of Sales Li PT Position: P3 Scheduling - Pleating Machine Operator Advanced Member Role: Other Name: STU RIDLEY APRN-DIRECTOR WEIGHTS AND MEASURES Position: P4 Advanced Practice Nurse Member Role: Primary Care Physician Address: Address: [address] [place] [address] Name: Test, P3 Scheduling - Pleating Machine Operator Advanced 4 Position: P3 Scheduling - Pleating Machine Operator Advanced Member Role: Other Care Team Related Persons Name: RADHAMES MONTALVO Address: Home [address] [place], [place] [phone] Care Team Personnel Name: Vera Vice President Of Sales Li PT Position: P3 Scheduling - Pleating Machine Operator Advanced Member Role: Other Name: STU RIDLEY APRN-DIRECTOR WEIGHTS AND MEASURES Position: P4 Advanced Practice Nurse Member Role: Primary Care Physician Address: Address: [address] [place] [address] Name: Test, P3 Scheduling - Pleating Machine Operator Advanced 4 Position: P3 Scheduling - Pleating Machine Operator Advanced Member Role: Other Care Team Related Persons Name: RADHAMES MONTALVO Address: Home [address] [place], [place] [phone] Care Team Personnel Name: Vera Vice President Of Sales Li PT Position: P3 Scheduling - Pleating Machine Operator Advanced Member Role: Other Name: STU RIDLEY APRN-DIRECTOR WEIGHTS AND MEASURES Position: P4 Advanced Motor Expert Member Role: Primary Care Physician Address: Address: [address] [place] [address] Name: Test, P3 Scheduling - Pleating Machine Operator Advanced 4 Position: P3 Scheduling - Pleating Machine Operator Advanced Member Role: Other Care Team Related Persons Name: RADHAMES MONTALVO Address: Home [address] [facility] [place] [phone] FOR RECORDS PERTAINING TO PATIENTS WHO ARE OR HAVE BEEN ENROLLED IN A CHEMICAL DEPENDENCY/SUBSTANCEABUSE PROGRAM, SOME INFORMATION MAY BE OMITTED. This clinical summary was aggregated from multiple sources. Caution should be exercised in using it in the provision of clinical care. This summary normalizes information from multiple sources, and as a consequence, information in this document may materially change the coding, format and clinical context of patient data. In addition, data may be omitted in some cases. CLINICAL DECISIONS SHOULD BE BASED ON THE PRIMARY CLINICAL RECORDS. [facility] [employer] [facility]. provides no warranty or guarantee of the accuracy or completeness of information in this document.
== END | disposition home or self-care (01) ==
LOC: SL 20:18
PROVIDERS: PCP Nurse Practitioner Family; Visit Provider Nurse Practitioner Acute Care
DX: G47.33 Obstructive sleep apnea (adult) (pediatric) (principal)
CPT/HCPCS: 95810